=== PATIENT | male | born 1940 | race Caucasian/White ===

== ENCOUNTER 2016-05-10 05:13 | Day surgery (SDC) | payer MEDICARE, OTHER ==
[2016-05-09 14:40] LABS: BASOPHILS 0.3 % (0.0-2.0); EOSINOPHILS 1.6 % (0-7); HEMATOCRIT 43.1 % (42.0-54.0); HEMOGLOBIN 14.1 g/dL (13.5-17.5); IMMATURE GRANULOCYTES 0.3 % (0-5); LYMPHOCYTES 10.3 % (15-50); MCH 31.3 pg (26.0-34.0); MCHC 32.7 g/dL (31.0-37.0); MCV 95.8 fL (80.0-100.0); MEAN PLATELET VOLUME 10.7 fL (7.4-10.4); MONOCYTES 9.7 % (2-11); NEUTROPHILS 77.8 % (40-80); PLATELET COUNT 193 10x3/uL (130-400); RDW 13.8 % (11.5-14.5); WBC 9.2 10x3/uL (4.8-10.8)
[2016-05-09 14:49] LABS: INR 0.93 (0.85-1.17); PROTIME 12.3 SECONDS (11.6-15.0)
[2016-05-09 14:55] LABS: APPEARANCE CLEAR (CLEAR); BILIRUBIN NEGATIVE (NEGATIVE); COLOR YELLOW (YELLOW); GLUCOSE 100 mg/dL (NEGATIVE); KETONE NEGATIVE (NEGATIVE); LEUKOCYTE ESTERASE TRACE (NEGATIVE); NITRITE NEGATIVE (NEGATIVE); PROTEIN NEGATIVE (NEGATIVE); SPECIFIC GRAVITY 1.005 (1.005-1.020); UROBILINOGEN NORMAL (NORMAL)
[2016-05-09 14:57] LABS: BACTERIA NONE SEEN /hpf (NONE SEEN); EPITHELIAL CELLS NSEEN /hpf (0-5); RED CELLS - URINE 0-5 /hpf (0-5); WHITE CELLS - URINE 0-5 /hpf (0-5)
[2016-05-09 15:05] LABS: CALC OSMOLALITY 294 mosm/kg (275-300); CALCIUM 8.7 mg/dL (8.5-10.1); CARBON DIOXIDE 30.6 mmol/L (21.0-32.0); CHLORIDE - SERUM 105 mmol/L (98-107); CREATININE - SERUM 0.9 mg/dL (0.6-1.3); GLUCOSE 164 mg/dL (74-106); POTASSIUM - SERUM 4.9 mmol/L (3.5-5.1); SODIUM 144 mmol/L (136-145); UREA NITROGEN 25 mg/dL (7-18); eGFR NON AFRICAN AMERICAN 87 mL/min (90-120)
[~2016-05-10] VITALS: Ht 180.3 cm; Wt 94.5 kg
[~2016-05-10 05:13] MED LIST: ALBUTEROL1.25 MG/3 INH; CARDURA4 MG PO; CORDARONE200 MG PO; COZAAR50 MG PO; DALIRESP500 MCG PO; DEXILANT30 MG PO; ECOTRIN325 MG PO; LASIX20 MG PO; LEVAQUIN750 MG PO; MUCINEX600 MG PO; MYRBETRIQ50 MG PO; NEXIUM20 MG PO; NITROMIST8.5 GM SL; NORVASC5 MG PO; PLAVIX75 MG PO; PREDNISONE5 MG PO; ROBAXIN-750750 MG PO; SENOKOT-S TABLE1 TAB PO; SINGULAIR10 MG PO; SPIRIVA18 MCG INH; STERAPRED 5MG 65 M1 PO; STERAPRED DS 1010 MG; SYMBICORT 80-10.2 GM INH; TOPROL XL100 MG PO; TUMS500 MG PO; VITAMIN D31000 UNIT PO; VYTORIN 10-20 M1 TAB PO; ZETIA10 MG PO
[2016-05-10 06:12] VITALS: BP 187/95; BMI 29.0
--- NOTE | 2016-05-10 09:32 | NUR ---
NO NUMBNESS OR TINGLING TO LOWER EXTREMETIES REPORTED EQUAL STRENGTHS BILATERALLY
--- NOTE | 2016-05-10 10:03 | NUR ---
2693 AT BEDSIDE. EXPLAINED TO REMAIN ON BEDREST STRAIGHT. STATES DISCOMFORT IS IN RIGHT HIP ONLY HOB AT 15 DEGREES.
--- NOTE | 2016-05-10 19:20 | NUR ---
1920 REPORT TO Marcela PACHECO, TO 5745
--- NOTE | 2016-05-10 19:35 | NUR ---
RECIEVED TO FROM OUTPATIENT TO ROOM 4 VIA WHEELCHAIR ACCOMPAINED PER STAFF FOR OBSERVATION. AWAKE,ALERT, NO COMPLAINTS VOICED. O2 @ 2L PER NC ON. NO DISTRESS NOTED. INCISION TO LUMBAR AREA WITHOUT DRAINAGE NOTED. ALEJANDRE. NO DEFICIETS NOTED. CL IN REACH.
[2016-05-10 23:03] VITALS: BP 153/66; Ht 180.3 cm; Wt 94.5 kg
--- NOTE | 2016-05-11 04:59 | NUR ---
LYING QUIETLY. NO COMPLIANTS VOICED. CL IN REACH.
--- NOTE | 2016-05-11 07:02 | OP ---
PATIENT NAME: RUDY GONZALEZ MEDICAL RECORD: [id number] :38 LOCATION:[id number] ADMISSION DATE: SURGEON: TAWANNA SMITH MD DATE OF OPERATION: 05/10/2016 PREOPERATIVE DIAGNOSIS: Right L3 radiculopathy. POSTOPERATIVE DIAGNOSIS: Right L3 radiculopathy PROCEDURES PERFORMED: 1. Right L3 laminotomy, medial facetectomy, L3-L4 discectomy and nerve root decompression. 2. Use of intraoperative microscope and microdissection techniques. SPECIMENS: None. COMPLICATIONS: None apparent. FINDINGS: More laterally located foraminal disc protrusion. HISTORY OF PRESENT ILLNESS: Mr. Rudy Gonzalez is a pleasant 75-year-old male, who presented as an outpatient with intractable right L3 radicular symptoms. Imaging was consistent with a more laterally positioned nerve root compression at L3 due to an L3-L4 bulging disc. Extensive discussion with the patient in clinic regarding the risks, benefits, and options for continued conservative therapy versus operative intervention in the form of minimally invasive right L3-L4 discectomy. He ultimately agreed to proceed forth with surgery. The risks and benefits of discussed with him in detail prior to surgery and he agreed. PROCEDURE IN DETAIL: Mr. Gonzalez was identified by anesthesia team and transferred to operative theater. General endotracheal anesthesia commenced and all appropriate lines and tubes were placed. He was gently transferred over in the prone position with his arms in the superman fashion on chest bolsters with his pressure points padded and the eyes accounted for by the anesthesia team. Lumbar region was prepped and draped in the usual sterile fashion. A timeout was performed and agreed to by those present. The patient did receive IV antibiotics preoperatively. A 22-gauge spinal needle was used to localize the L3-L4 level and skin incision was infiltrated with local anesthetic and a 10 blade was used to make an incision in the skin down to the underlying fascia, which was then further transected sharply. Blunt dissection occurred of the lamina facet junction and the metrics tube system starting with the dilators was introduced and the operative channel was developed. This was confirmed under lateral x-ray to be in appropriate position. The overlying muscle and soft tissue was removed with a Bovie electrocautery and pituitary rongeur exposing the underlying L3-L4 laminar facet junction. Using a combination of a high-speed matchstick drill, pituitary rongeurs and Kerrison rongeurs, the laminotomy and medial facetectomy was performed. The underlying ligamentum flavum was identified and the plane between it and the dura was dissected with a ball probe dissector. The Kerrison rongeurs were used to perform the removal of the ligament exposing the underlying thecal sac. Judicious bipolar electrocautery was used to coagulate epidural vessels and the L3-L4 disc was identified. A cruciate incision was made in the disc space and pituitary rongeurs and dissectors were used to complete the discectomy. The dissectors were used to interrogate and confirm nerve root decompression both with the OPERATIVE REPORT [id number] RUDY GONZALEZ exiting L3 nerve root and the transiting L4 nerve root. Judicious bipolar electrocautery and Surgiflo hemostatic matrix were used to dress the small amount of epidural hemorrhage. Further inspection revealed no significant hemorrhages. Copious irrigation was used and the tube was removed. Small amount of hemorrhage in the muscle was then coagulated under the microscope with bipolar electrocautery and several more rounds of irrigation were used down the operative tract through the muscle. A 2-0 Vicryl was used in inverted interrupted fashion to reapproximate the fascial layer. Skin was closed with a running 4-0 subcuticular Monocryl. The fascia was closed in watertight fashion. Please note that there was a durotomy noted in the thecal sac; however, the underlying arachnoid remained intact and there was no loss of cerebral spinal fluid visualized at any point in the procedure. The incision was cleaned and dressed and cleaned with a wet and dry dressing. Dermabond skin glue was then placed. Sponge and needle counts were correct times 2 at the end of the case. He tolerated the procedure well. There were no apparent complications. The patient was returned to anesthesia team for reversal and extubation. I spoke to the patient's immediately postoperatively and updated her regarding the course of the procedure. TRANSINT:[id number] Voice Confirmation ID: [id number] DOCUMENT ID: [id number] TAWANNA SMITH MD at 0702 CC: [id number] DICTATION DATE: 05/10/16913 PLUSH BRUSHER: 05/10/16951 [facility] [address] [place] [address]
--- NOTE | 2016-05-11 07:02 | HP ---
PATIENT: JUNIOR MCKEON MEDICAL RECORD: [id number] ACCOUNT: [id number] LOCATION:[id number] : 38 ADMISSION DATE: 05/10/16 HISTORY AND PHYSICAL EXAMINATION CHIEF COMPLAINT: Back pain. HISTORY OF PRESENT ILLNESS: This is a pleasant elderly gentleman who presented to our office in February with complaints of back pain. He had been to a local physical therapist, he stretched him, he felt a pop in his back and he has had pain radiating down into his right leg since that time. The pain in his right leg has worsened in the past week. He is having difficulty ambulating. He has been on Plavix due to stents. He has had it on hold since May 06. PAST MEDICAL HISTORY: Significant for the aforementioned stent. He has also seen Dr. Loera for BMP and has chronic back pain along with congestive heart failure, orthostatic hypotension, hypogonadism, hypercholesterolemia, abnormal testosterone, UTI, constipation, kidney stones and a history of pneumonia. PAST SURGICAL HISTORY: Significant for the aforementioned stents. CURRENT MEDICATIONS: Include his Plavix, amlodipine 5 mg daily, aspirin 325 daily, Dexilant 30 mg delayed release, losartan 50 mg, nitroglycerin p.r.n., hydrocodone 7.5/325 q.6 hours p.r.n., prednisone 5 mg daily, ranitidine 150 daily. He is also on Spiriva handheld inhaler and Symbicort, Vytorin and Flomax. SOCIAL HISTORY: He is . He has a significant other. FAMILY DOCTOR: Dr. Betancourt, Dr. Jules and Dr. Loera. ALLERGIES: None. REVIEW OF SYSTEMS: He denies any recent chest pain, shortness of breath or weight changes. He has had chronic back pain. PHYSICAL EXAMINATION: GENERAL: This is an alert, oriented male in no acute distress. HEENT: Normocephalic. Pupils are equal, reactive to light. CHEST: Clear to auscultation. HEART: S1 and S2. ABDOMEN: Soft. Bowel sounds present. EXTREMITIES: He limps on the right leg. He has a positive straight leg raise. IMPRESSION: A right L3-L4 herniated nucleus pulposus PLAN: A right L3-L4 matrix laminectomy discectomy. He has been cleared surgically by Dr. Jules and also his Plavix since . The risk and benefits of surgery have been explained to him in detail. Risks include bleeding, failure to relieve symptoms, problems with anesthesia and . Time was allowed for questions, questions were answered. The patient wishes to proceed with surgery. TRANSINT:[id number] Voice Confirmation ID: [id number] DOCUMENT ID: [id number] HISTORY AND PHYSICAL [id number] JUNIOR MCKEON Dictated By: ELOISE BOB I have interviewed/examined the above patient and agree with these documented findings. TAWANNA SMITH MD at 0702 at 0826 CC: [id number] DICTATION DATE: 05/09/16 1400 PEDIATRIC ONCOLOGY NURSE: 05/09/[address] [facility] [address] [place] [address]
--- NOTE | 2016-05-11 07:07 | NUR ---
PT AOX4 RESP EVEN AND NONLABORED PT DENIES NEEDS AT THIS TIME IV LEFT HAND PATENT AND INTACT BED AT LOWEST SETTING WILL CONTINUE TO MONITOR CALL LIGHT WITHIN REACH
[2016-05-11 08:03] VITALS: BP 142/74
[2016-05-11 12:14] VITALS: BP 142/62
== END 2016-05-11 17:48 | disposition home or self-care (01) ==
LOC: D.OPS 05:13 → D.MS 05:13 → D.OPS 07:30 → D.PAN 07:30 → D.MS 19:22 → D.OPS 05-11 17:48
PROVIDERS: Neurological Surgery
DX: M54.16 Radiculopathy, lumbar region (principal); G89.29 Other chronic pain; I11.0 Hypertensive heart disease with heart failure; I50.9 Heart failure, unspecified; E29.1 Testicular hypofunction; E78.00 Pure hypercholesterolemia, unspecified; K59.00 Constipation, unspecified; Z87.442 Personal history of urinary calculi; Z95.5 Presence of coronary angioplasty implant and graft; Z79.02 Long term (current) use of antithrombotics/antiplatelets; Z79.82 Long term (current) use of aspirin; Z79.891 Long term (current) use of opiate analgesic; Z79.52 Long term (current) use of systemic steroids; Z79.899 Other long term (current) drug therapy

== ENCOUNTER → 2016-07-12 10:17 | Outpatient (CLI) | payer MEDICARE, OTHER ==
[2016-05-10 23:03] VITALS: BMI 29.0
--- NOTE | 2016-07-12 12:30 | NUR ---
Nutrition education for DMT2: Pt and present for education. Pt reports he used to eat a whole bag of cookies in one sitting. Pt admits to eating huge portions of food at meals. Pt sleeps in and ususally only eats 2 meals a day. Pt drinks a lot of coffee and water during the day. Pt drinks only a small glass of juice in the morning to take medication. Pt is unable to exercise due to back trouble and COPD. 76 year old male Dx: DMT2 Ht: 5'10" Wt: 202# IBW: 166#+/-10% BMI: 29.0 Meds: Metformin 2x/day, Glipizide 1x/day Reviewed CHO foods and the affect CHO have on glucose. Discussed portion sizes of common CHO foods. Stressed the importance of consistent timing of meals to keep glucose under control. Discussed the action of medications and stressed the importance of never skipping meals due to Glipizide may cause low blood sugar if meals are skipped. Reviewed sample menus. Advised pt to keep all sugary foods out of the house to prevent tempation to eat. RDN answered all questions. Pt and with good understanding of information provided. RDN feels pt will attempt to be compliant with dietary recommendations; however, RDN feels pt is going to have a hard time with glucose control. Provided pt with printed diet information and RDN name and phone number. RDN will be available if needed. Thank you for the consult.
== END ==
LOC: D.FANS 10:17
DX: E11.9 Type 2 diabetes mellitus without complications (principal)

== ENCOUNTER → 2016-08-21 19:26 | Outpatient (CLI) | payer MEDICARE, OTHER ==
[2016-05-10 23:03] VITALS: BMI 29.0
== END | disposition home or self-care (01) ==
LOC: D.SLEEP 08-03 20:00
DX: G47.36 Sleep related hypoventilation in conditions classified elsewhere (principal)

== ENCOUNTER → 2017-03-08 10:51 | Outpatient (CLI) | payer MEDICARE, OTHER ==
[2016-05-10 23:03] VITALS: BMI 29.0
== END | disposition home or self-care (01) ==
LOC: D.MRI 10:51
DX: R41.3 Other amnesia (principal)

== ENCOUNTER → 2017-04-06 08:01 | Outpatient (CLI) | payer MEDICARE, OTHER ==
[~2017-04-06] VITALS: Ht 180.3 cm; Wt 100.0 kg
--- NOTE | ~2017-04-06 | HEMODYNAMI ---
PATIENT:JUNIOR MCKEON MEDICAL RECORD: [id number] : 36 LOCATION:[facility] ADMISSION DATE: 04/06/17 Generatedon:04/06/201713:06 Patient name: JUNIOR MCKEON Patient #: [id number] SSN: [id number] : 1940 Date of study: 04/06/2017 Page: Of Hemodynamic Procedure Report Patient Data Patient Demographics Procedure consent was obtained First Name: JUNIOR Gender: Male Last Name: MIKE : 1940 Middle Initial: D Age: 76 year(s) Patient #: [id number] Race: SSN: [id number] Additional ID: [id number] Contact details Address: [address] [place] [address] [place] State: [place] City: [place] Zip code: [address] Past Medical History History of disease Date Diagnosis Comments CAD Peripheral vascular disease Allergies Allergen Reaction Date Comments Reported Other allergy 04/06/2017 hydrocodone Admission Admission Data Admission Date: 04/06/2017 Admission Time: 8:01 Arrival Date: 04/06/2017 Arrival Time: 10:30 Admit Source: Other Insurance Payor: Medicare Lab Results Lab Result Date: 04/06/2017 Lab Result Time: 0:00 Biochemistry Name Units Result Min Max BUN mg/dl 23 --(----)-* 7 18 Creatinine mg/dl 1.2 --(---*)-- 0.6 1.3 CBC Name Units Result Min Max Hemoglobin g/dl 13.2 -*(----)-- 13.5 17.5 Procedure Procedure Types Cath Procedure Diagnostic Procedure [facility] w/Coronaries FFR/IVUS Intra-Coronary IVUS Initial PCI Procedure Coronary Stent Coronary Stent Initial Miscellaneous Procedures Moderate Sedation up to 15 minutes Procedure Description Procedure Date Procedure Date: 04/06/2017 Procedure Start Time: 12:47 Procedure End Time: 13:03 Procedure Staff Name Function Jason Jules MD Performing Physician Jackelin Altamirano RT Monitor Diana Marino RT Scrub Jed Muniz RN Nurse Procedure Data Cath Procedure Fluoroscopy Diagnostic fluoroscopy Total fluoroscopy Time: 2.9 time: 2.9 min min Diagnostic fluoroscopy Total fluoroscopy dose: 799 dose: 799 mGy mGy Contrast Material Contrast Material Type Amount (ml) Isovue 300 90 Entry Location Entry Primary Successful Side Size Upsize Upsize Entry Closure Succes sful Closure Location (Fr) 1 (Fr) 2 (Fr) Remarks Device Remarks Femoral Right 5 Fr 6 Fr Exoseal artery Short Estimated blood loss: 5 ml Diagnostic catheters Device Type Used For End Catheter Placement MULTIPACK Pigtail 5 Fr LV Angiography catheter MULTIPACK JL 4.0 5Fr Left Coronary catheter Angiography MULTIPACK 3DRC 5Fr Right Coronary catheter Angiography Procedure Complications No complications Procedure Medications Medication Administration Route Dosage 0.9% NaCl I.V. 100 ml/hr Oxygen NC 2 l/min Heparin Flush Bag added to field 2 bags (1000units/500ml NS) Lidocaine 2% added to field 20 Versed I.V. 2 mg Fentanyl I.V. 100 mcg Versed I.V. 1 mg Heparin Bolus I.V. 4000 units Hemodynamics Rest HGB: 13.2 (g/dl) Heart Rate: 76 (bpm) Pressure Samples Time Site Value (mmHg) Purpose Heart Use Rate(bpm) 12:50 LV 157/31,37 Snapshot 81 Snapshots Pre Cath Intra NCS Post Cath Vital Signs Time Heart Resp SPO2 etCO2 NIBP (mmHg) Rhythm Pain Sedation Rate (ipm) (%) (mmHg) Status Level (bpm) 12:16:29 86 14 96 40 176/100(141) NSR 0 (11) 10(A) , No pain 12:21:14 85 14 97 37.7 181/97(137) NSR 0 (11) 10(A) , No pain 12:25:58 77 14 94 31.7 139/73(119) NSR 0 (11) 10(A) , No pain 12:30:39 83 15 92 0 144/80(109) NSR 0 (11) 10(A) , No pain 12:36:01 88 15 95 19.6 160/97(122) NSR 0 (11) 10(A) , No pain 12:40:45 84 15 94 46.1 139/82(111) NSR 0 (11) 10(A) , No pain 12:45:28 86 19 91 42.3 145/77(99) NSR 0 (11) 10(A) , No pain 12:50:11 88 13 94 24.2 155/85(116) NSR 0 (11) 10(A) , No pain 12:55:10 89 12 93 42.3 Measuring NSR 0 (11) 10(A) , No pain 12:55:36 93 13 93 43 174/96(147) NSR 0 (11) 10(A) , No pain 13:00:19 89 16 95 43.8 161/93(121) NSR 0 (11) 10(A) , No pain Medications Time Medication Route Dose Verified Delivered Reason Notes Effectiveness by by 12:16:15 0.9% NaCl I.V. 100 Jed Jed Per physician ml/hr Flavio Muniz RN RN 12:16:28 Oxygen NC 2 Jed Jed Per physician l/min Flavio Muniz RN, RN 12:16:42 Heparin Flush added 2 Jed Jed used for Bag to bags Flavio Muniz procedure (1000units/500ml field NARAYAN RN NS) 12:17:00 Lidocaine 2% added 20ml Jed Jed for local to vial Flavio Muniz anesthetic field NARAYAN RN 12:45:14 Versed I.V. 2 mg Jed Jed for sedation Flavio Muniz RN, RN 12:45:28 Fentanyl I.V. 100 Jed Jed for sedation mcg Flavio Muniz RN, RN 12:50:00 Versed I.V. 1 mg Jed Jed for sedation Flavio Muniz RN, RN 12:58:31 Heparin Bolus I.V. 4000 Jed Jed for units Flavio Muniz anticoagulation RN block trimmer Log Time Note 12:00:03 Diana PRATT(R) sent for patient. Start room use. 12:04:10 Time tracking: Regular hours 12:04:15 Plan of Care:Hemodynamics will remain stable., Cardiac rhythm will remain stable., Comfort level will be maintained., Respiratory function will remain adequate., Patient/ family verbilizes understanding of procedure., Procedure tolerated without complication., Recovers from procedure without complications.. 12:04:20 Patient received from Pre/Post Procedure Room to CCL 2 Alert and oriented. Tansferred to table in Supine position. 12:04:22 Warm blankets applied, and erika hugger turned on for patient comfort. 12:04:23 Correct patient and procedure confirmed by team. 12:04:24 Signed procedure consent form obtained from patient. 12:04:25 ECG and BP/O2 sat monitors applied to patient. 12:15:35 Baseline sample Acquired. 12:15:35 Vital chart was started 12:15:41 Rhythm: sinus rhythm 12:15:43 Full Disclosure recording started 12:16:15 0.9% NaCl 100 ml/hr I.V. was administered by Jed Muniz RN; Per physician; 12:16:28 Oxygen 2 l/min NC was administered by Jed Muniz RN; Per physician; 12:16:42 Heparin Flush Bag (1000units/500ml NS) 2 bags added to field was administered by Jed Muniz RN; used for procedure; 12:17:00 Lidocaine 2% 20ml vial added to field was administered by Jed Muniz RN; for local anesthetic; 12:17:34 H&P Date Dictated: 04/05/2017 Within 30 days and on chart., H&P Addendum completed by physician on day of procedure. (MUST COMPLETE FOR ALL OUTPATIENTS). 12:17:36 Pre-procedure instructions explained to patient. 12:17:36 Pre-op teaching completed and patient verbalized understanding. 12:17:38 Family unavailable. 12:17:40 Patient NPO since Midnight. 12:18:38 Patient allergic to Other allergyhydrocodone 12:18:46 Is the patient allergic to Iodine/contrast media? No. 12:18:47 Was the patient premedicated? No 12:18:52 Is patient on blood thinner?Yes 12:18:55 ACC The patient was administered the following blood thiners within the last 24 hours: ACCPlavix 12:20:22 Patient diabetic? No. 12:20:26 Previous problem with sedation/anesthesia? No ? 12:20:37 Snore? Yes 12:20:38 Sleep apnea? Yes 12:20:41 Deviated septum? No 12:20:42 Opens mouth fully? Yes 12:20:43 Sticks out tongue? Yes 12:20:49 Airway obstruction? Yes copd 12:20:56 Dentures? No ? 12:21:03 Pre procedure: right dorsailis pedis pulse 2+ Normal; easily identifiable; not easily obliterated 12:21:06 Pre procedure: left dorsailis pedis pulse 2+ Normal; easily identifiable; not easily obliterated 12:21:08 Patient pain scale 0/10 ?. 12:21:22 IV patent on arrival in right forearm with 0.9% NaCl at [facility]. 12:25:49 Lab Result : BUN 23 mg/dl 12::49 Lab Result : Creatinine 1.2 mg/dl 12::49 Lab Result : Hemoglobin 13.2 g/dl 12:25:53 Lab results completed and on chart. 12:25:57 Right groin area was prepped with chlora-prep and draped in sterile fashion 12::59 Alarms reviewed by R. N. 12::59 Sharps counted by scrub and verified by R.N. 12:34:35 Admit Source: Other 12:34:42 Arrival Date: 04/06/2017 10:30:00 AM 12:34:49 Insurance Payor : Medicare 12:35:13 Zero performed for pressure channel P1 12:41:55 Physician arrived 12:41:55 --------ALL STOP TIME OUT------ 12:41:57 Final Timeout: patient, procedure, and site verified with staff and physician. All members of the team are in agreement. 12:41:59 Right groin site verified by team. 12:42:02 Physical assessment completed. ASA score P 2 - A patient with mild systemic disease as per Jason Jules MD. 12:42:06 Sedation plan: IV Moderate Sedation Medication:Versed, Fentanyl 12:43:36 Use device set Femoral Dx 12:43:37 ACIST Syringe (40059) opened to sterile field. 12:43:37 Bag Decanter (2002S) opened to sterile field. 12:43:38 Medline Cath Pack ([id number]) opened to sterile field. 12:43:38 SHEATH 5FR [place] (FLF579) opened to sterile field. 12:43:39 DIAGNOSTIC WIRE .035 260cm J wire (523509) opened to sterile field. 12:43:40 ACIST Hand Control (67089) opened to sterile field. 12:43:41 ACIST Manifold (92163) opened to sterile field. 12:43:41 DIAGNOSTIC Multipack 5Fr catheter set (CI3227) opened to sterile field. 12:43:42 Tegaderm 4 x 4 (1626W) opened to sterile field. 12:45:14 Versed 2 mg I.V. was administered by Jed Muniz RN; for sedation; 12:45:28 Fentanyl 100 mcg I.V. was administered by Jed Muniz RN; for sedation; 12:47:17 Procedure started. 12:47:20 Local anesthetic to right femoral artery with Lidocaine 2% by Jason Jules MD.INITIAL ACCESS ONLY 12:47:28 A 5 Fr sheath was inserted into the Right Femoral artery 12:49:35 AMPLATZ Super stiff 180cm wire ([id number]) opened to sterile field. 12:50:00 Versed 1 mg I.V. was administered by Jed Muniz RN; for sedation; 12:50:09 amplatz wire used to provide support for 5 frech sheath 12:50:29 A MULTIPACK Pigtail 5 Fr catheter was advanced over the wire and used for LV Angiography. 12:51:02 LV hemodynamics recorded. 12:51:04 LV gram done using GRIGGS 12:51:06 Injector settings: Ml/sec: 5, Volume: 15, 12:51:12 EF : 40 % 12:51:16 Catheter removed. 12:51:22 A MULTIPACK JL 4.0 5Fr catheter was advanced over the wire and used for Left Coronary Angiography. 12:51:36 LCA angiography performed. 12:51:39 Injector settings: Ml/sec: 3, Volume: 6, 12:52:51 Catheter removed. 12:52:58 A MULTIPACK 3DRC 5Fr catheter was advanced over the wire and used for Right Coronary Angiography. 12:53:12 RCA angiography performed. 12:53:15 Injector settings: Ml/sec: 3, Volume: 6, 12:53:49 Catheter removed. 12:54:01 INFLATOR Merit BasixCompak (EM9744) opened to sterile field. 12:54:02 SHEATH 6FR [place] (FWF146) opened to sterile field. 12:54:56 [place] IVUS Catheter (60419O) opened to sterile field. 12:55:02 GUIDE 6FR XB 4.0 SH catheter ([id number]) opened to sterile field. 12:55:14 CHOICE PT Extra Support 182cm wire ([id number]) opened to sterile field. 12:56:17 Sheath upsized to a 6 Fr Short. 12:56:25 6 Fr xb 4 sh guide catheter was inserted over the wire 12:56:32 choice pt wire advanced. 12:56:34 Wire advanced across lesion. 12:56:40 IVUS catheter advanced over wire. 12:58:31 Heparin Bolus 4000 units I.V. was administered by Jed Muniz RN; for anticoagulation; 12:59:35 IVUS pass to Circ lesion performed. 13:00:06 Inflation Number: 1 A INTEGRITY RX 3.5 x 22 stent ([id number]) was prepped and advanced across the Mid CX. The stent was deployed at 17 IMAN for 0:10 (min:sec). 13:00:35 Stent catheter was removed intact over wire. 13:00:35 Wire removed. 13:00:36 Guide catheter removed. 13:00:45 EXOSEAL 6Fr (EX600) opened to sterile field. 13:00:56 Sheath removed intact; hemostasis achieved with Exoseal to the Right Femoral artery. 13:00:58 Procedure ended.(Physican Out) 13:02:00 Fluoroscopy time 02.90 minutes. 13:02:05 Fluoroscopy dose: 799 mGy 13:02:05 Flurop Dose total: 799 13:02:15 Contrast amount:Isovue 300 90ml. 13:02:17 Sharps counted by scrub and verified by R.N. 13:02:18 Insertion/operative site no bleeding no hematoma. 13:02:21 Post-op/insertion site Right Femoral artery dressed using a 4 x 4 and Tegaderm. 13:02:24 Post right femoral artery:stable 13:02:27 Post procedure rhythm: unchanged. 13:02:30 Estimated blood loss: 5 ml 13:02:34 Post procedure instruction explained to patient.Patient verbalizes understanding. 13:02:40 Patient needs reinforcement of post procedure teaching. 13:03:02 Procedure type changed to Cath procedure, Diagnostic procedure, [facility], [facility] w/Coronaries, FFR/IVUS, Intra-Coronary IVUS Initial, PCI procedure, Coronary Stent, Coronary Stent Initial, Miscellaneous Procedures, Moderate Sedation up to 15 minutes 13:03:04 Procedure and supply charges have been captured, reviewed, submitted and are correct. 13:03:08 Procedure Complication : No complications 13:03:11 Vital chart was stopped 13:03:12 See physician's report for complete and final results. 13:03:41 Report given to Pre/Post Procedure Room. 13:03:46 Patient transfered to Pre/Post Procedure Room with Stretcher. 13:03:54 Procedure ended. 13:03:54 Full Disclosure recording stopped 13:04:32 ACC-PCI Only Patient was given prescriptions, or instructed by Jason Jules MD to start/continue the following medications upon discharge: Plavix 13:04:34 End room use (Document Last) Intervention Summary Intervention Notes Time ActionType Lesion and Equipment Action# Pressure Duration Attributes Used 13:00:06 Place stent Mid CX INTEGRITY RX 1 17 00:10 3.5 x 22 stent ([id number]) Device Usage Item Name Manufacture Quantity Catalog Number Hospital Part Current Mini mal Lot# / Charge Number Stock Stock Serial# Code ACIST Acist 1 38514 567352 168608 444132 20 Syringe Medical (06245) Systems Inc Bag Decanter Microtek 1 2002S 599880 67505 867975 5 (2001S) Medical Inc. Medline Cath Cardinal 1 [id number] 645249 90262 813562 5 Pack Health ([id number]) SHEATH 5FR Terumo 1 OWY179 984955 332282 407961 40 [place] (XSZ845) DIAGNOSTIC [facility] 1 104892 855704 870503 830106 30 WIRE .035 260cm J wire (118424) ACIST Hand Acist 1 46570 052076 192995 158628 5 Control Medical (48084) Systems Inc ACIST Acist 1 14577 774476 355242 421371 5 Manifold Medical (18750) Systems Inc DIAGNOSTIC Cardinal 1 HX4645 054882 74826 732325 30 Multipack Health 5Fr catheter set (KK1616) Tegaderm 4 x 3M 1 1626W 665057 303415 688940 5 4 (1626W) AMPLATZ [place] 1 [id number] 382936 014825 5 Super stiff Scientific 180cm wire ([id number]) MULTIPACK Cardinal 1 150758 5 Pigtail 5 Fr Health catheter MULTIPACK JL Cardinal 1 446238 5 4.0 5Fr Health catheter MULTIPACK Cardinal 1 462654 5 3DRC 5Fr Health catheter INFLATOR Merit 1 EJ1007 190900 187540 771945 15 [facility] BasixCompak (EX1642) SHEATH 6FR Terumo 1 FZC420 573517 786937 463552 40 [place] (OVG354) [place] 1 51382S 302376 140141 434361 8 [place] IVUS Catheter (69267E) GUIDE 6FR XB Cardinal 1 [id number] 353540 986481 086327 2 4.0 SH Health catheter (66318433) CHOICE PT [place] 1 [id number] 926656 320347 900964 5 Extra Scientific Support 182cm wire ([id number]) INTEGRITY RX Medtronic 1 [id number] 205579 327430 271565 5 [id number] 3.5 x 22 stent ([id number]) EXOSEAL 6Fr Cardinal 1 EX600 735576 588468 602927 10 (EX600) Health Signature Audit [place] Stage Time Signature Unsigned Intra-Procedure 04/06/2017 Jackelin Altamirano 1:06:54 PM RT(R) Signatures Monitor : Jackelin Altamirano RT Signature : Date : Time : [place] [id number] [place] [address]
--- NOTE | ~2017-04-06 | OP ---
PATIENT NAME: JUNIOR MCKEON MEDICAL RECORD: [id number] :38 LOCATION:D.CAT ADMISSION DATE: SURGEON: WALI ABRAMS MD DATE OF OPERATION: 04/06/2017 PROCEDURES: 1. PTCA stent left circumflex. 2. Intravascular ultrasound of left circumflex. 3. Left heart catheterization. 4. Selective coronary angiography. 5. Left ventriculogram. INDICATION: Angina and coronary artery disease. PROCEDURE IN DETAIL: After informed consent was obtained and after a detailed explanation of risks, benefits as well as alternative therapies, the patient elected to proceed with angiogram and angioplasty. The right femoral area is prepped and draped in normal sterile fashion. The right femoral artery was cannulated via modified Seldinger technique with placement of a 6-[place] sheath. All catheters exchanged through this sheath. FINDINGS: Left ventriculogram was performed in standard 30-degree GRIGGS view, reveals global hypokinesis, ejection fraction 40%. SELECTIVE CORONARY ANGIOGRAPHY: 1. Left main showed no significant angiographic disease. 2. Left anterior descending has moderate irregularities, but no flow-limiting stenosis. 3. The left circumflex has greater than 70% stenosis confirmed by intravascular ultrasound in the mid vessel. 4. The right coronary artery has previously placed stents, these are widely patent with no significant restenosis. No disease elsewise throughout the RCA or its branches. PTCA STENT OF THE LEFT CIRCUMFLEX: The stent used is a 3.5 x 22 mm Integrity. Result was 0% residual stenosis. No angiographic evidence of dissection or thrombus with methodist of KIERA-3 flow. IMPRESSION: Successful percutaneous transluminal coronary angioplasty stent of the left circumflex going from greater than 70% initial stenosis confirmed by intravascular ultrasound to 0% residual stenosis. TRANSINT:[id number] Voice Confirmation ID: [id number] DOCUMENT ID: [id number] WALI ABRAMS MD CC: [id number] DICTATION DATE: 04/06/17 1306 ASBESTOS COVERER: 04/06/17 1421 [place] [id number] [place] [id number]
[~2017-04-06 08:01] MED LIST changes: +BAYER CHEWABLE81 MG PO; +GLUCOPHAGE500 MG PO; +LIPITOR20 MG PO
[2017-04-06 08:58] VITALS: BP 154/66; Ht 180.3 cm; Wt 100.0 kg
[2017-04-06 09:13] LABS: BASOPHILS 0.2 % (0-2); EOSINOPHILS 1.6 % (0-7); HEMATOCRIT 40.9 % (42.0-54.0); HEMOGLOBIN 13.2 g/dL (13.5-17.5); IMMATURE GRANULOCYTES 0.2 % (0-5); LYMPHOCYTES 14.3 % (15-50); MCH 30.1 pg (26.0-34.0); MCHC 32.3 g/dL (31.0-37.0); MCV 93.4 fL (80.0-100.0); MONOCYTES 8.9 % (2-11); NEUTROPHILS 74.8 % (40-80); PLATELET COUNT 200 10x3/uL (130-400); RBC 4.38 10x6/uL (4.20-6.10); WBC 11.6 10x3/uL (4.8-10.8)
[2017-04-06 09:15] LABS: ANION GAP 13.6 mmol/L (8-16); CALCIUM 9.2 mg/dL (8.5-10.1); CARBON DIOXIDE 29.4 mmol/L (21.0-32.0); CREATININE - SERUM 1.2 mg/dL (0.6-1.3)
[2017-04-06 09:17] LABS: INR 0.9 (0.85-1.17); PROTIME 11.7 SECONDS (11.6-15.0)
== END | disposition home or self-care (01) ==
LOC: D.CATH 08:01
PROVIDERS: Internal Medicine Interventional Cardiology
DX: I20.9 Angina pectoris, unspecified (principal); I10 Essential (primary) hypertension; E78.5 Hyperlipidemia, unspecified; Z01.812 Encounter for preprocedural laboratory examination

== ENCOUNTER → 2017-05-02 08:21 | Outpatient (CLI) | payer MEDICARE, OTHER ==
[2017-04-06 08:58] VITALS: BMI 30.7
== END | disposition home or self-care (01) ==
LOC: D.CT 08:21
DX: I70.219 Atherosclerosis of native arteries of extremities with intermittent claudication, unspecified extremity (principal); R93.8 Abnormal findings on diagnostic imaging of other specified body structures; I25.10 Atherosclerotic heart disease of native coronary artery without angina pectoris

== ENCOUNTER → 2017-05-07 07:37 | Outpatient (CLI) | payer MEDICARE, OTHER ==
[~2017-05-07] VITALS: Ht 180.3 cm; Wt 100.0 kg
--- NOTE | ~2017-05-07 | HEMODYNAMI ---
PATIENT:JUNIOR MCKEON MEDICAL RECORD: [id number] : 36 LOCATION:[facility] ADMISSION DATE: 05/07/17 Generatedon:05/07/201714:10 Patient name: JUNIOR MCKEON Patient #: [id number] SSN: [id number] : 1940 Date of study: 05/07/2017 Page: Of Hemodynamic Procedure Report Patient Data Patient Demographics Procedure consent was obtained First Name: JUNIOR Gender: Male Last Name: MIKE : 1940 Middle Initial: D Age: 76 year(s) Patient #: [id number] Race: SSN: [id number] Additional ID: [id number] Contact details Address: [address] [place] [address] [place] State: [place] City: [place] Zip code: [address] Past Medical History History of disease Date Diagnosis Comments CAD Peripheral vascular disease Allergies Allergen Reaction Date Comments Reported Other allergy 04/06/2017 hydrocodone Other allergy 05/07/2017 none Admission Admission Data Admission Date: 05/07/2017 Admission Time: 7:37 Height (in.): 66 BSA: 2.09 (m2) Height (cm.): 167.64 BMI: 35.67 (kg/m2) Weight (lbs.): 221 Weight (kg.): 100.24 Procedure Procedure Types Cath Procedure Peripheral Cath Diagnostic Procedure Cath Peripheral Eechj-Loueuuy-Jnw-Off Procedure Description Procedure Date Procedure Date: 05/07/2017 Procedure Start Time: 13:53 Procedure End Time: 14:02 Procedure Staff Name Function Jason Jules MD Performing Physician Diana Marino RT Monitor Fransisco Martin RN Nurse Jackelin Altamirano RT Scrub Procedure Data Cath Procedure Fluoroscopy Diagnostic fluoroscopy Total fluoroscopy Time: 1 time: 1 min min Diagnostic fluoroscopy Total fluoroscopy dose: 324 dose: 324 mGy mGy Contrast Material Contrast Material Type Amount (ml) Isovue 300 114 Entry Location Entry Primary Successful Side Size Upsize Upsize Entry Closure Succes sful Closure Location (Fr) 1 (Fr) 2 (Fr) Remarks Device Remarks Femoral Right 6 Fr Exoseal artery Short Estimated blood loss: 10 ml Diagnostic catheters Device Type Used For End Catheter Placement DIAGNOSTIC UF 5Fr Abdominal catheter ([id number]) aortogram with runoff Procedure Complications No complications Procedure Medications Medication Administration Route Dosage Oxygen NC 2 l/min Lidocaine 2% added to field 20 Heparin Flush Bag added to field 2 bags (1000units/500ml NS) 0.9% NaCl I.V. 100 ml/hr Versed I.V. 1 mg Fentanyl I.V. 50 mcg Versed I.V. 1 mg Fentanyl I.V. 50 mcg Fentanyl I.V. 50 mcg Fentanyl I.V. 50 mcg Hemodynamics Rest BSA: 2.09 (m2) O2 Consumption: Estimated: 241.59 (ml/min) O2 Consumption indexed : Estimated:115.59 (ml/min/m) Heart Rate: 73 (bpm) Snapshots Pre Cath Intra NCS Post Cath Vital Signs Time Heart Resp SPO2 etCO2 NIBP (mmHg) Rhythm Pain Sedation Rate (ipm) (%) (mmHg) Status Level (bpm) 13:15:26 83 17 98 0 173/100(138) NSR 0 (11) 10(A) , No pain 13:19:52 85 16 97 0 182/109(145) NSR 0 (11) 10(A) , No pain 13:24:04 81 15 96 0 155/90(142) NSR 0 (11) 10(A) , No pain 13:28:18 80 16 97 0 136/77(123) NSR 0 (11) 10(A) , No pain 13:32:32 80 15 96 0 135/79(108) NSR 0 (11) 10(A) , No pain 13:36:48 78 16 93 0 132/72(92) NSR 0 (11) 10(A) , No pain 13:40:58 78 16 95 0 126/70(99) NSR 0 (11) 10(A) , No pain 13:45:08 79 17 97 0 126/70(109) NSR 0 (11) 10(A) , No pain 13:49:22 79 16 96 0 128/69(101) NSR 0 (11) 10(A) , No pain 13:53:34 84 15 94 0 134/88(113) NSR 0 (11) 9(A) , No pain 13:57:46 74 19 94 0 150/94(124) NSR 0 (11) 9(A) , No pain 14:01:58 84 17 95 0 149/94(137) NSR 0 (11) 10(A) , No pain 14:04:35 84 16 94 0 173/95(132) NSR 0 (11) 10(A) , No pain Medications Time Medication Route Dose Verified Delivered Reason Notes Effe ctiveness by by 13:23:31 Oxygen NC 2 Jason Buffie used for l/min Jorge A Martin RN procedure 13:23:37 Lidocaine 2% added 20ml Jason Jason for local to vial Jorge A Jules MD anesthetic field 13:23:43 Heparin Flush added 2 Jason Jason used for Bag to bags Jorge A Jules MD procedure (1000units/500ml field NS) 13:23:53 0.9% NaCl I.V. 100 Jason Buffie Per ml/hr Jorge A Martin RN physician 13:51:22 Versed I.V. 1 mg Jason Moody for Jorge A Martin RN sedation 13:51:29 Fentanyl I.V. 50 Jason Buffie for almaz Martin RN sedation 13:54:35 Versed I.V. 1 mg Jason Buffie for Jorge A Martin RN sedation 13:54:38 Fentanyl I.V. 50 Jason Buffie for almaz Martin RN sedation 13:58:14 Fentanyl I.V. 50 Jason Buffie for almaz Martin RN sedation 14:01:16 Fentanyl I.V. 50 Jason Buffie for almaz Martin RN sedation Procedure Log Time Note 13:12:56 Patient Height : 66 inches 13:13:03 Patient Weight : 221 lbs 13:13:43 Diagnostic Cath status Elective 13:13:49 Jackelin Altamirano RT(R) sent for patient. Start room use. 13:13:50 Time tracking: Regular hours 13:13:58 Plan of Care:Hemodynamics will remain stable., Cardiac rhythm will remain stable., Comfort level will be maintained., Respiratory function will remain adequate., Patient/ family verbilizes understanding of procedure., Procedure tolerated without complication., Recovers from procedure without complications.. 13:14:03 Patient received from Pre/Post Procedure Room to CCL 2 Alert and oriented. Tansferred to table in Supine position. 13:14:05 Warm blankets applied, and erika hugger turned on for patient comfort. 13:14:06 Correct patient and procedure confirmed by team. 13:14:07 Signed procedure consent form obtained from patient. 13:14:11 ECG and BP/O2 sat monitors applied to patient. 13:14:12 Vital chart was started 13:14:15 Baseline sample Acquired. 13:14:22 Rhythm: sinus rhythm 13:14:24 Full Disclosure recording started 13:22:55 H&P Date Dictated: 05/02/2017 Within 30 days and on chart.. 13:22:56 Pre-procedure instructions explained to patient. 13:22:58 Family in waiting room. 13:23:00 Patient NPO since Midnight. 13:23:19 Patient allergic to Other allergynone 13:23:25 Is the patient allergic to Iodine/contrast media? No. 13:23:28 Was the patient premedicated? Yes 13:23:29 Is patient on blood thinner?Yes 13:23:31 Oxygen 2 l/min NC was administered by Fransisco Martin RN; used for procedure; 13:23:32 ACC The patient was administered the following blood thiners within the last 24 hours: ACCPlavix 13:23:34 Patient diabetic? Yes. 13:23:36 If diabetic: On Metformin? Yes 13:23:37 Lidocaine 2% 20ml vial added to field was administered by Jason Jules MD; for local anesthetic; 13:23:40 If on Metformin: Last Dose? 05/06/2017 13:23:43 Heparin Flush Bag (1000units/500ml NS) 2 bags added to field was administered by Jason Jules MD; used for procedure; 13:23:44 HCG/Urine : completed and on chart 13:23:48 Snore? Yes 13:23:49 Sleep apnea? Yes 13:23:53 0.9% NaCl 100 ml/hr I.V. was administered by Fransisco Martin RN; Per physician; 13:23:55 Airway obstruction? Yes COPD 13:23:58 Dentures? No ? 13:24:10 IV patent on arrival in left antecubital with 0.9% NaCl at KVO. 13:24:21 Lab results completed and on chart. 13:24:26 Bilateral groins area was prepped with chlora-prep and draped in sterile fashion 13:: Alarms reviewed by R. N. 13:24:28 Sharps counted by scrub and verified by R.N. 13:24:29 Physician paged 13:26:37 Zero performed for pressure channel P1 13:50:45 Physician arrived 13:50:46 --------ALL STOP TIME OUT------ 13:50:47 Final Timeout: patient, procedure, and site verified with staff and physician. All members of the team are in agreement. 13:50:49 Bilateral groins site verified by team. 13:50:52 Physical assessment completed. ASA score P 2 - A patient with mild systemic disease as per Jason Jules MD. 13:50:56 Sedation plan: IV Moderate Sedation Medication:Versed, Fentanyl 13:51:22 Versed 1 mg I.V. was administered by Fransisco Martin RN; for sedation; 13:51:29 Fentanyl 50 mcg I.V. was administered by Fransisco Martin RN; for sedation; 13:52:52 Procedure started. 13:53:05 Local anesthetic to right femoral artery with Lidocaine 2% by Jason Jules MD.INITIAL ACCESS ONLY 13:53:35 A 6 Fr Short sheath was inserted into the Right Femoral artery 13:54:00 Use device set Femoral Dx 13:54:01 ACIST Syringe (17618) opened to sterile field. 13:54:02 Bag Decanter () opened to sterile field. 13:54:03 Medline Cath Pack ([id number]) opened to sterile field. 13:54:05 DIAGNOSTIC WIRE .035 260cm J wire (200300) opened to sterile field. 13:54:06 ACIST Hand Control (46636) opened to sterile field. 13:54:06 ACIST Manifold (01612) opened to sterile field. 13:54:07 DIAGNOSTIC Multipack 5Fr catheter set ([id number]) opened to sterile field. 13:54:07 Tegaderm 4 x 4 (1626W) opened to sterile field. 13:54:15 PERCUTANEOUS ENTRY 19GA needle opened to sterile field. 13:54:35 Versed 1 mg I.V. was administered by Buffie Martin RN; for sedation; 13:54:38 Fentanyl 50 mcg I.V. was administered by Fransisco Martin RN; for sedation; 13:56:31 A DIAGNOSTIC UF 5Fr catheter ([id number]) was advanced over the wire and used for Abdominal aortogram with runoff. 13:57:07 Right leg runoff performed. 13:57:08 Left leg runoff performed. 13:58:14 Fentanyl 50 mcg I.V. was administered by Fransisco Martin RN; for sedation; 13:59:19 EXOSEAL 6Fr (EX600) opened to sterile field. 14:00:00 Sheath removed intact; hemostasis achieved with Exoseal to the Right Femoral artery. 14:00:02 Procedure ended.(Physican Out) 14:00:07 Fluoroscopy time 01.00 minutes. 14:00:10 Fluoroscopy dose: 324 mGy 14:00:10 Flurop Dose total: 324 14:00:14 Contrast amount:Isovue 300 114ml. 14:00:16 Sharps counted by scrub and verified by R.N. 14:00:17 Insertion/operative site no bleeding no hematoma. 14:00:21 Post right femoral artery:stable 14:00:31 Post Procedure Pulses reassessed and unchanged 14:00:38 Post-procedure physical assessment completed. ASA score P 2 - A patient with mild systemic disease as per Jason Jules MD. 14:00:42 Post procedure rhythm: unchanged. 14:01:16 Fentanyl 50 mcg I.V. was administered by Fransisco Martin RN; for sedation; 14:01:27 Estimated blood loss: 10 ml 14:01:28 Post procedure instruction explained to patient.Patient verbalizes understanding. 14:01:46 Procedure and supply charges have been captured, reviewed, submitted and are correct. 14:02:40 Procedure Complication : No complications 14:02:42 Vital chart was stopped 14:02:43 See physician's report for complete and final results. 14:02:44 Report given to Pre/Post Procedure Room. 14:02:47 Patient transfered to Pre/Post Procedure Room with Stretcher. 14:02:49 Procedure ended. 14:02:49 Full Disclosure recording stopped 14:02:57 End room use (Document Last) Device Usage Item Name Manufacture Quantity Catalog Hospital Part Current Minimal Lot# / Number Charge Number Stock Stock Serial# Code [facility] 1 [id number] 115311 [id number] 20 Syringe Medical (52711) Systems Inc Bag Decanter Microtek 1 2001S 502978 32095 066209 5 (2001S) Medical Inc. Medline Cath Cardinal 1 [id number] 899548 27934 512526 5 Pack Health ([id number]) DIAGNOSTIC [facility] 1 098882 635255 067203 020111 30 WIRE .035 260cm J wire (880965) ACIST Hand Acist 1 46120 470104 467005 094286 5 Control Medical (58380) Systems Inc ACIST Acist 1 00657 279648 011814 308891 5 Manifold Medical (84706) Systems Inc DIAGNOSTIC Cardinal 1 [id number] 109472 35480 375264 30 MultipGreenvity Communications 5Fr catheter set (PM2230) Tegaderm 4 x 3M 1 1626W 459524 347183 099935 5 4 (1626W) PERCUTANEOUS Cook Medical 1 Q28361 711424 666334 5 ENTRY 19GA needle DIAGNOSTIC Cardinal 1 [id number] 413101 605963 654495 10 UF 5Fr Health catheter ([id number]) EXOSEAL 6Fr Cardinal 1 EX600 048845 549662 953917 10 (EX600) Health Signature Audit [place] Stage Time Signature Unsigned Intra-Procedure 05/07/2017 Diana Marino 2:10:19 PM RT(R) Signatures Monitor : Diana Marino Signature : RT Date : Time : [address] [place] [address]
--- NOTE | ~2017-05-07 | OP ---
PATIENT NAME: JUNIOR MCKEON MEDICAL RECORD: [id number] :36 LOCATION:[facility] ADMISSION DATE: SURGEON: WLAI ABRAMS MD DATE OF OPERATION: 05/07/2017 PROCEDURES: 1. Aortofemoral runoff. 2. Abdominal aortography. INDICATION: Claudication and peripheral vascular disease. PROCEDURE IN DETAIL: After informed consent was obtained and after detailed explanation of risks, benefits as well as alternative therapies, the patient elected to proceed with angiogram and aortofemoral runoff. The right femoral area was prepped and draped in normal sterile fashion. The right femoral artery was cannulated via modified Seldinger technique with placement of a 6-Bulgarian sheath. All catheters exchanged through this sheath. FINDINGS: Abdominal aortography was performed. The catheter was pulled down for aortofemoral runoff. Abdominal aortography reveals no significant abdominal aortic disease. No dissection or aneurysm formation. No renal artery stenosis. RIGHT LEG: A. Iliac: The common and external iliacs were replaced with an aortobifemoral graft. This is widely patent. B. Femoral system: The common and deep femoral are widely patent. Superficial femoral has multiple areas of calcification; however, no real stenosis. No stenosis greater than 30% to 50%. Definitely no flow-limiting stenosis. C. Popliteal and infrapopliteal vessels: The popliteal is widely patent. Anterior tibial is totally occluded. Posterior tibial and peroneal are severely diffusely diseased. Runoff is only midway down to the foot. Then the vessels are basically occluded. There is only runoff via collaterals. LEFT LEG: A. Iliac: The common and external iliacs were replaced with an aortobifemoral graft. This is widely patent. B. Femoral system: The common and deep femoral are widely patent. Superficial femoral has multiple areas of calcification; however, no real stenosis. No stenosis greater than 30% to 50%. Definitely no flow-limiting stenosis. C. Popliteal and infrapopliteal vessels: The popliteal is widely patent. Anterior tibial is totally occluded. Posterior tibial and peroneal are severely diffusely diseased. Runoff is only midway down to the foot. Then the vessels are basically occluded. There is only runoff via collaterals. OVERALL IMPRESSION: Wide patency of the aortobifemoral graft, no significant SFA disease, severe infrapopliteal disease, this is only amenable to medical management. TRANSINT:[id number] Voice Confirmation ID: [id number] DOCUMENT ID: [id number] OPERATIVE REPORT [id number] JUNIOR MCKEON, WALI VERNON at 1140 CC: [id number] DICTATION DATE: 05/07/17 1404 CORRECTIONAL CORPORAL: 05/07/17 1425 DEP CLI 05/07/17 [place] [id number] [place] [id number]
[2017-05-07 08:43] VITALS: BP 183/82; Ht 180.3 cm; Wt 100.0 kg
[2017-05-07 08:52] LABS: BASOPHILS 0.2 % (0-2); EOSINOPHILS 1.7 % (0-7); HEMOGLOBIN 13.3 g/dL (13.5-17.5); IMMATURE GRANULOCYTES 0.3 % (0-5); LYMPHOCYTES 11.3 % (15-50); MCHC 32.4 g/dL (31.0-37.0); MCV 92.6 fL (80.0-100.0); MEAN PLATELET VOLUME 10.7 fL (7.4-10.4); MONOCYTES 7.8 % (2-11); NEUTROPHILS 78.7 % (40-80); PLATELET COUNT 200 10x3/uL (130-400); RBC 4.43 10x6/uL (4.20-6.10); RDW 13.7 % (11.5-14.5); WBC 11.4 10x3/uL (4.8-10.8)
[2017-05-07 09:20] LABS: CALC OSMOLALITY 301 mosm/kg (275-300); CARBON DIOXIDE 28.4 mmol/L (21.0-32.0); CHLORIDE - SERUM 102 mmol/L (98-107); GLUCOSE 164 mg/dL (74-106); POTASSIUM - SERUM 3.9 mmol/L (3.5-5.1); SODIUM 147 mmol/L (136-145); UREA NITROGEN 29 mg/dL (7-18); eGFR NON AFRICAN AMERICAN 77 mL/min (90-120)
== END | disposition home or self-care (01) ==
LOC: D.CATH 07:37
PROVIDERS: Internal Medicine Interventional Cardiology
DX: I70.219 Atherosclerosis of native arteries of extremities with intermittent claudication, unspecified extremity (principal); Z01.812 Encounter for preprocedural laboratory examination; E78.5 Hyperlipidemia, unspecified; I10 Essential (primary) hypertension; I25.10 Atherosclerotic heart disease of native coronary artery without angina pectoris

== ENCOUNTER 2017-10-09 08:38 | Outpatient (CLI) | payer MEDICARE, OTHER ==
[~2017-10-09] VITALS: Ht 180.3 cm; Wt 94.5 kg
--- NOTE | ~2017-10-09 | OP ---
PATIENT NAME: JUNIOR MCKEON MEDICAL RECORD: [id number] :38 LOCATION:D.[facility] ADMISSION DATE: SURGEON: WALI ABRAMS MD DATE OF OPERATION: 10/09/2017 PROCEDURES: 1. PTCA stent LAD. 2. Left heart catheterization. 3. Selective coronary angiography. 4. Left ventriculogram. INDICATION: Unstable angina and coronary artery disease. PROCEDURE IN DETAIL: After informed consent was obtained and after a detailed description of the risks, benefits as well as alternative therapies, the patient elected to proceed with angiogram and angioplasty. The left femoral area was prepped and draped in normal sterile fashion. Left femoral artery was cannulated via modified Seldinger technique with placement of 6-Icelandic sheath. All catheters exchanged through this sheath. FINDINGS: The left ventriculogram was performed in standard 30-degree GRIGGS view reveals global hypokinesis throughout all segments. Overall ejection fraction is 40%. SELECTIVE CORONARY ANGIOGRAPHY: 1. Left main showed no significant angiographic disease. 2. Left anterior descending has 80% stenosis in the mid vessel. 3. Left circumflex has moderate irregularities, but no flow-limiting stenosis. 4. The right coronary has previously placed stents, these are widely patent with no significant restenosis. No disease elsewise at the RCA or its branches. PTCA STENT OF THE LAD: The stent used was a 2.25 x [address] [place]. Result with 0% residual stenosis. OVERALL IMPRESSION: Successful percutaneous transluminal coronary angioplasty stent of the left anterior descending going from 80% initial stenosis to 0% residual. TRANSINT:[id number] Voice Confirmation ID: [id number] DOCUMENT ID: [id number] WALI ABRAMS MD at 1642 CC: [id number] DICTATION DATE: 10/09/17 1155 HUMAN RESOURCES REPRESENTATIVE: 10/09/17 1203 DEP CLI 10/09/17 [place] [address]
--- NOTE | ~2017-10-09 | HEMODYNAMI ---
PATIENT:JUNIOR MCKEON MEDICAL RECORD: [id number] : 36 LOCATION:[facility] ADMISSION DATE: 10/09/17 Generatedon:10/09/201711:52 Patient name: JUNIOR MCKEON Patient #: [id number] SSN: [id number] : 1940 Date of study: 10/09/2017 Page: Of Hemodynamic Procedure Report Patient Data Patient Demographics Procedure consent was obtained First Name: JUNIOR Gender: Male Last Name: MIKE : 1940 Middle Initial: D Age: 77 year(s) Patient #: [id number] Race: SSN: [id number] Additional ID: [id number] Contact details [address]: [address] [place] [address] [place] State: [place] City: [place] Zip code: [address] Past Medical History History of disease Date Diagnosis Comments CAD Peripheral vascular disease Allergies Allergen Reaction Date Comments Reported Other allergy 04/06/2017 hydrocodone Other allergy 05/07/2017 none Admission Admission Data Admission Date: 10/09/2017 Admission Time: 8:38 Procedure Procedure Types Cath Procedure Diagnostic Procedure [facility] w/Coronaries Sedation Charges Moderate Sedation up to 15 minutes PCI Procedure Coronary Stent Coronary Stent Initial Procedure Description Procedure Date Procedure Date: 10/09/2017 Procedure Start Time: 11:36 Procedure End Time: 11:49 Procedure Staff Name Function Jason Jules MD Performing Physician Jackelin Altamirano RT Monitor Diana Marino RT Scrub Krystian Matute RN Nurse Procedure Data Cath Procedure Fluoroscopy Diagnostic fluoroscopy Total fluoroscopy Time: 3.5 time: 3.5 min min Diagnostic fluoroscopy Total fluoroscopy dose: 354 dose: 354 mGy mGy Contrast Material Contrast Material Type Amount (ml) Isovue 300 108 Entry Location Entry Primary Successful Side Size Upsize Upsize Entry Closure Succes sful Closure Location (Fr) 1 (Fr) 2 (Fr) Remarks Device Remarks Femoral Left 5 Fr 6 Fr Exoseal artery Short Estimated blood loss: 5 ml Diagnostic catheters Device Type Used For End Catheter Placement MULTIPACK Pigtail 5 Fr LV Angiography catheter MULTIPACK JL 4.0 5Fr Left Coronary catheter Angiography MULTIPACK 3DRC 5Fr Right Coronary catheter Angiography Procedure Complications No complications Procedure Medications Medication Administration Route Dosage Oxygen etCO2 Nasal cannula 2 l/min Heparin Flush Bag added to field 2 bags (1000units/500ml NS) 0.9% NaCl I.V. ml/hr Fentanyl I.V. 50 mcg Versed I.V. 1 mg Fentanyl I.V. 50 mcg Versed I.V. 1 mg Fentanyl I.V. 50 mcg Fentanyl I.V. 50 mcg Heparin Bolus I.V. 4000 units Hemodynamics Rest Heart Rate: 79 (bpm) Pressure Samples Time Site Value (mmHg) Purpose Heart Use Rate(bpm) 11:37 LV 164/57,61 Snapshot 81 Snapshots Pre Cath Intra NCS Post Cath Vital Signs Time Heart Resp SPO2 etCO2 NIBP (mmHg) Rhythm Pain Sedation Rate (ipm) (%) (mmHg) Status Level (bpm) 11:07:46 78 15 92 0 167/90(139) NSR 0 (11) 10(A) , No pain 11:12:12 81 17 97 39.1 172/114(152) NSR 0 (11) 10(A) , No pain 11:16:34 78 18 97 36.8 177/96(138) NSR 0 (11) 10(A) , No pain 11:20:51 87 18 96 44.4 128/86(103) NSR 0 (11) 10(A) , No pain 11:25:03 81 17 96 29.3 125/82(97) NSR 0 (11) 10(A) , No pain 11:29:21 80 16 94 41.4 113/69(95) NSR 0 (11) 10(A) , No pain 11:33:26 85 16 93 18 125/82(107) NSR 0 (11) 10(A) , No pain 11:37:38 85 17 95 42.1 141/82(106) NSR 0 (11) 9(A) , No pain 11:41:54 76 17 94 33.1 133/85(124) NSR 0 (11) 9(A) , No pain 11:46:53 90 17 93 57.2 134/93(126) NSR 0 (11) 9(A) , No pain 11:51:28 89 11 93 42.9 Time NSR 0 (11) 9(A) Exceeded , No pain Medications Time Medication Route Dose Verified Delivered Reason Notes Effectiveness by by 11:10:32 Oxygen etCO2 2 Jason Boland Per physician Nasal l/min Jorge A Matute RN cannula 11:10:42 Heparin Flush added 2 Jason Boland used for Bag to bags Jorge A Matute RN procedure (1000units/500ml field NS) 11:10:50 0.9% NaCl I.V. ml/hr Jason Boland Per physician Jorge A Matute RN 11:30:58 Fentanyl I.V. 50 Jason Boland for sedation mcg Jorge A Matute RN 11:31:05 Versed I.V. 1 mg Jason Boland for sedation Jorge A Matute RN 11:34:44 Fentanyl I.V. 50 Jason Boland for sedation mcg Jorge A Matute RN 11:34:49 Versed I.V. 1 mg Jason Boland for sedation Jorge A Matute RN 11:37:17 Fentanyl I.V. 50 Jason Boland for sedation mcg Jorge A Matute RN 11:39:07 Fentanyl I.V. 50 Jason Boland for sedation mcg Jorge A Matute RN 11:44:33 Heparin Bolus I.V. 4000 Jason Boland for units Jorge A Matute RN anticoagulation Procedure Log Time Note 10:29:09 Krystian Matute RN sent for patient. Start room use. 10:29:10 Time tracking: Regular hours (M-F 7:00 - 5:00) 10:29:14 Plan of Care:Hemodynamics will remain stable., Cardiac rhythm will remain stable., Comfort level will be maintained., Respiratory function will remain adequate., Patient/ family verbilizes understanding of procedure., Procedure tolerated without complication., Recovers from procedure without complications.. 10:54:36 Patient received from Pre/Post Procedure Room to CCL 3 Alert and oriented. Tansferred to table in Supine position. 10:54:37 Warm blankets applied, and erika hugger turned on for patient comfort. 10:54:38 Correct patient and procedure confirmed by team. 10:54:39 Signed procedure consent form obtained from patient. 10:54:40 ECG and BP/O2 sat monitors applied to patient. 11:06:26 Vital chart was started 11:08:37 Baseline sample Acquired. 11:08:41 Rhythm: sinus rhythm 11:08:43 Full Disclosure recording started 11:08:47 H&P Date Dictated: 10/09/2017 Within 30 days and on chart., H&P Addendum completed by physician on day of procedure. (MUST COMPLETE FOR ALL OUTPATIENTS). 11:08:48 Pre-procedure instructions explained to patient. 11:08:49 Pre-op teaching completed and patient verbalized understanding. 11:08:50 Family in waiting room. 11:08:51 Patient NPO since Midnight. 11:08:53 Is the patient allergic to Iodine/contrast media? No. 11:08:54 Was the patient premedicated? No 11:08:59 Is patient on blood thinner?Yes 11:09:02 ACC The patient was administered the following blood thiners within the last 24 hours: ACCPlavix 11:09:04 Patient diabetic? Yes. 11:09:05 If diabetic: On Metformin? Yes 11:09:07 If on Metformin: Last Dose? 10/09/2017 11:09:10 Previous problem with sedation/anesthesia? No ? 11:09:13 Snore? Yes 11:09:13 Sleep apnea? Yes 11:09:14 Deviated septum? No 11:09:15 Opens mouth fully? Yes 11:09:16 Sticks out tongue? Yes 11:09:21 Airway obstruction? Yes copd 11:09:33 Dentures? Yes in tight 11:09:41 Pre procedure: right dorsailis pedis pulse 2+ Normal; easily identifiable; not easily obliterated 11:09:42 Pre procedure: left dorsailis pedis pulse 2+ Normal; easily identifiable; not easily obliterated 11:09:44 Patient pain scale 0/10 ?. 11:10:09 IV patent on arrival in left forearm with 0.9% NaCl at O. 11:10:11 Lab results completed and on chart. 11:10:16 Left groin area was prepped with chlora-prep and draped in sterile fashion 11:10:17 Alarms reviewed by R. N. 11:10:18 Sharps counted by scrub and verified by R.N. 11:10:22 Physician arrived 11:10:23 Final Timeout: patient, procedure, and site verified with staff and physician. All members of the team are in agreement. 11:10:24 Left groin site verified by team. 11:10:27 Physical assessment completed. ASA score P 2 - A patient with mild systemic disease as per Jason Jules MD. 11:10:31 Sedation plan: IV Moderate Sedation Medication:Versed, Fentanyl 11:10:32 Oxygen 2 l/min etCO2 Nasal cannula was administered by Krystian Matute RN; Per physician; 11:10:42 Heparin Flush Bag (1000units/500ml NS) 2 bags added to field was administered by Krystian Matute RN; used for procedure; 11:10:50 0.9% NaCl ml/hr I.V. was administered by Krystian Matute RN; Per physician; 11:11:29 Use device set Femoral Dx 11:11:30 ACIST Syringe (62709) opened to sterile field. 11:11:31 Bag Decanter (2002S) opened to sterile field. 11:11:31 Medline Cath Pack ([id number]) opened to sterile field. 11:11:32 DIAGNOSTIC WIRE .035 260cm J wire (436470) opened to sterile field. 11:11:33 ACIST Hand Control (37513) opened to sterile field. 11:11:33 ACIST Manifold (58086) opened to sterile field. 11:11:34 DIAGNOSTIC Multipack 5Fr catheter set (ET5176) opened to sterile field. 11:11:35 Tegaderm 4 x 4 (1626W) opened to sterile field. 11:11:35 SHEATH Prelude 5Fr 0.035 (CXR-9I-10-035) opened to sterile field. 11:30:38 --------ALL STOP TIME OUT------ 11:30:58 Fentanyl 50 mcg I.V. was administered by Krystian Matute RN; for sedation; 11:31:05 Versed 1 mg I.V. was administered by Krystian Matute RN; for sedation; 11:34:44 Fentanyl 50 mcg I.V. was administered by Krystian Matute RN; for sedation; 11:34:49 Versed 1 mg I.V. was administered by Krystian Matute RN; for sedation; 11:35:55 Procedure started. 11:36:09 Local anesthetic to left femerol artery with Lidocaine 2% by Jason Jules MD.INITIAL ACCESS ONLY 11:36:22 A 5 Fr sheath was inserted into the Left Femoral artery 11:36:38 A MULTIPACK Pigtail 5 Fr catheter was advanced over the wire and used for LV Angiography. 11:37:17 Fentanyl 50 mcg I.V. was administered by Krystian Matute RN; for sedation; 11:37:32 LV hemodynamics recorded. 11:37:33 LV gram done using GRIGGS 11:37:35 Injector settings: Ml/sec: 5, Volume: 15, 11:37:44 EF : 40 % 11:37:49 Catheter removed. 11:37:54 A MULTIPACK JL 4.0 5Fr catheter was advanced over the wire and used for Left Coronary Angiography. 11:38:48 LCA angiography performed. 11:38:51 Injector settings: Ml/sec: 3, Volume: 6, 11:39:07 Fentanyl 50 mcg I.V. was administered by Krystian Matute RN; for sedation; 11:39:48 CHOICE PT Extra Support 182cm wire ([id number]) opened to sterile field. 11:39:49 INFLATOR Merit BasixCompak (GH9433) opened to sterile field. 11:39:50 SHEATH 6Fr Prelude ([id number]) opened to sterile field. 11:40:10 Catheter removed. 11:40:16 A MULTIPACK 3DRC 5Fr catheter was advanced over the wire and used for Right Coronary Angiography. 11:41:10 Catheter removed. 11:43:22 Proceeding to intervention. 11:43:36 GUIDE 6FR XBLAD 3.5 catheter (07586399) opened to sterile field. 11:43:46 Sheath upsized to a 6 Fr Short. 11:43:54 6 Fr XBLAD 3.5 guide catheter was inserted over the wire 11:44:00 CHOICE PT wire advanced. 11:44:01 Wire advanced across lesion. 11:44:33 Heparin Bolus 4000 units I.V. was administered by Krystian Matute RN; for anticoagulation; 11:46:06 Place stent Inflation Number: 1 A SHIRAZ RX 2.25 x 18 stent ([id number]) was prepped and advanced across the Mid LAD. The stent was deployed at 13 IMAN for 0:10 (min:sec). 11:46:48 Stent catheter was removed intact over wire. 11:46:49 Wire removed. 11:46:49 Guide catheter removed. 11:47:07 EXOSEAL 6Fr (EX600) opened to sterile field. 11:47:22 Sheath removed intact; hemostasis achieved with Exoseal to the Left Femoral artery. 11:47:24 Procedure ended.(Physican Out) 11:48:04 Fluoroscopy time 03.50 minutes. 11:48:09 Fluoroscopy dose: 354 mGy 11:48:09 Flurop Dose total: 354 11:48:15 Contrast amount:Isovue 300 108ml. 11:48:17 Sharps counted by scrub and verified by R.N. 11:48:23 Insertion/operative site no bleeding no hematoma. 11:48:29 Post-op/insertion site Left Femoral artery dressed using a 4 x 4 and Tegaderm. 11:48:33 Post left femerol artery:stable 11:48:40 Post procedure rhythm: unchanged. 11:48:43 Estimated blood loss: 5 ml 11:48:45 Post procedure instruction explained to patient.Patient verbalizes understanding. 11:48:45 Patient needs reinforcement of post procedure teaching. 11:49:00 Procedure type changed to Cath procedure, Diagnostic procedure, LHC, LHC w/Coronaries, Sedation Charges, Moderate Sedation up to 15 minutes, PCI procedure, Coronary Stent, Coronary Stent Initial 11:49:01 Procedure and supply charges have been captured, reviewed, submitted and are correct. 11:49:05 Procedure Complication : No complications 11:49:07 Vital chart was stopped 11:49:08 See physician's report for complete and final results. 11:49:09 Report given to Pre/Post Procedure Room. 11:49:12 Patient transfered to Pre/Post Procedure Room with Stretcher. 11:49:13 Procedure ended. 11:49:13 Full Disclosure recording stopped 11:49:20 ACC-PCI Only Patient was given prescriptions, or instructed by Jason Jules MD to start/continue the following medications upon discharge: Plavix 11:49:21 End room use (Document Last) Intervention Summary Intervention Notes Time ActionType Lesion and Equipment Used Action# Pressure Duration Attributes 11:46:06 Place stent Mid LAD HSIRAZ RX 2.25 x 1 13 00:10 18 stent ([id number]) Device Usage Item Name Manufacture Quantity Catalog Number Hospital Part Current Minimal Lot# / Charge Number Stock Stock Serial# Code ACIST Syringe Acist 1 86612 690676 225322 359805 20 (18672) [employer] Bag Decanter Microtek 1 [id number] 44941 975160 5 () Medical Inc. Medline Cath Cardinal 1 [id number] 839862 34636 842153 5 Pack Health ([id number]) DIAGNOSTIC WIRE [facility] 1 602190 992132 066577 259383 30 .035 260cm J wire (827111) ACIST Hand Acist 1 24513 809727 370972 632760 5 Control (66193) [employer] Inc ACIST Manifold Acist 1 12930 696980 648481 087496 5 (08222) [employer] Systems Inc DIAGNOSTIC Cardinal 1 HC3685 013473 81140 713746 30 Multipack 5Fr Health catheter set (EX3480) Tegaderm 4 x 4 3M 1 1626W 973829 853239 392877 5 (1626W) SHEATH Prelude Merit 1 VBQ-1U-76-035 216721 740044 213517 5 5Fr 0.035 Medical ([id number]-9Q-57-035) MULTIPACK Cardinal 1 395240 5 Pigtail 5 Fr Health catheter MULTIPACK JL Cardinal 1 066052 5 4.0 5Fr Health catheter CHOICE PT Extra Haines 1 [id number] 381768 036725 388199 5 Support 182cm Scientific wire ([id number]) INFLATOR Merit Merit 1 KA8616 100394 182477 942161 15 BasixCompak Medical (QJ8203) SHEATH 6Fr Merit 1 [id number] 418480 086296 589291 5 Prelude Medical ([id number]) MULTIPACK 3DRC Cardinal 1 715689 5 5Fr catheter Health GUIDE 6FR XBLAD Cardinal 1 [id number] 395519 631579 104608 10 3.5 catheter Health ([id number]) SHIRAZ RX 2.25 x Medtronic 1 [id number] 481734 6436483 177608 5 [id number] 18 stent ([id number]) EXOSEAL 6Fr Cardinal 1 EX600 545829 022700 932198 10 (EX600) Health Signature Audit [place] Stage Time Signature Unsigned Intra-Procedure 10/09/2017 Jackelin Altamirano 11:52:37 AM RT(R) Signatures Monitor : Jackelin Altamirano RT Signature : Date : Time : [id number] [place] [address]
[2017-10-09] MEDS ORDERED: GLIMEPIRIDE2 MG PO (09:36)
[2017-10-09 09:41] VITALS: BP 151/71; Ht 180.3 cm; Wt 94.5 kg
[2017-10-09 10:06] LABS: BASOPHILS 0.3 % (0-2); EOSINOPHILS 2.6 % (0-7); HEMATOCRIT 38.2 % (42.0-54.0); HEMOGLOBIN 12.3 g/dL (13.5-17.5); IMMATURE GRANULOCYTES 0.2 % (0-5); LYMPHOCYTES 8.7 % (15-50); MCH 29.7 pg (26.0-34.0); MCHC 32.2 g/dL (31.0-37.0); MCV 92.3 fL (80.0-100.0); MEAN PLATELET VOLUME 11.2 fL (7.4-10.4); MONOCYTES 7.5 % (2-11); NEUTROPHILS 80.7 % (40-80); RBC 4.14 10x6/uL (4.20-6.10); RDW 14.4 % (11.5-14.5); WBC 11.2 10x3/uL (4.8-10.8)
[2017-10-09 10:11] LABS: PLATELET COUNT 266 10x3/uL (130-400)
[2017-10-09 11:09] LABS: CALC OSMOLALITY 285 mosm/kg (275-300); CALCIUM 8.1 mg/dL (8.5-10.1); CARBON DIOXIDE 31.3 mmol/L (21.0-32.0); CHLORIDE - SERUM 108 mmol/L (98-107); GLUCOSE 93 mg/dL (74-106); POTASSIUM - SERUM 4.4 mmol/L (3.5-5.1); SODIUM 143 mmol/L (136-145); UREA NITROGEN 16 mg/dL (7-18); eGFR NON AFRICAN AMERICAN 76 mL/min (90-120)
[2017-11-07] MEDS ORDERED: MOBIC7.5 MG PO (09:32)
[2017-11-07] MEDS ORDERED: NORVASC5 MG PO (09:33)
[2017-11-07] MEDS ORDERED: METOPROLOL TART25 MG PO (09:34)
[2017-11-07] MEDS ORDERED: SINGULAIR10 MG PO (09:34)
[2017-11-07] MEDS ORDERED: ZANTAC300 MG PO (09:35)
[2017-11-07] MEDS ORDERED: CENTRUM SILVER1 EACH PO (09:35)
== END 2017-10-09 16:00 ==
LOC: D.CATH 08:38
PROVIDERS: Internal Medicine Interventional Cardiology
DX: I25.110 Atherosclerotic heart disease of native coronary artery with unstable angina pectoris (principal)
CPT/HCPCS: C9600; 93458

== ENCOUNTER 2017-10-27 00:40 | Emergency (ER) | payer MEDICARE, OTHER ==
[~2017-10-27] VITALS: Ht 180.3 cm; Wt 95.5 kg
[~2017-10-27 00:40] MED LIST changes: +GLIMEPIRIDE2 MG PO
[2017-10-27 00:44] VITALS: Ht 180.3 cm; Wt 95.5 kg
[2017-10-27 01:07] LABS: BASOPHILS 0.2 % (0-2); EOSINOPHILS 2.4 % (0-7); HEMATOCRIT 38.5 % (42.0-54.0); HEMOGLOBIN 12.3 g/dL (13.5-17.5); IMMATURE GRANULOCYTES 0.3 % (0-5); LYMPHOCYTES 18.6 % (15-50); MCH 29.9 pg (26.0-34.0); MCHC 31.9 g/dL (31.0-37.0); MCV 93.4 fL (80.0-100.0); MEAN PLATELET VOLUME 10.5 fL (7.4-10.4); MONOCYTES 9.5 % (2-11); PLATELET COUNT 216 10x3/uL (130-400); RBC 4.12 10x6/uL (4.20-6.10); WBC 9.7 10x3/uL (4.8-10.8)
[2017-10-27 01:31] LABS: ALKALINE PHOSPHATASE 74 U/L (46-116); ALT (SGPT) 25 U/L (10-68); BILIRUBIN - TOTAL 0.16 mg/dL (0.2-1.3); CALC OSMOLALITY 289 mosm/kg (275-300); CALCIUM 8.2 mg/dL (8.5-10.1); CARBON DIOXIDE 28.5 mmol/L (21.0-32.0); CHLORIDE - SERUM 108 mmol/L (98-107); CREATINE KINASE 39 UL (21-232); POTASSIUM - SERUM 4.4 mmol/L (3.5-5.1); PROTEIN - SERUM 6.2 g/dL (6.4-8.2); SODIUM 143 mmol/L (136-145); TROPONIN-I 0.022 ng/mL (0.000-0.060); UREA NITROGEN 21 mg/dL (7-18); eGFR NON AFRICAN AMERICAN 76 mL/min (90-120)
[2017-10-27 01:32] LABS: GLUCOSE 141 mg/dL (74-106)
[2017-10-27] MEDS ORDERED: ISOSORBIDE MONO30 M1 PO (01:48)
[2017-10-27 04:40] VITALS: BP 136/78
[2017-11-07] MEDS ORDERED: MOBIC7.5 MG PO (09:32)
[2017-11-07] MEDS ORDERED: NORVASC5 MG PO (09:33)
[2017-11-07] MEDS ORDERED: METOPROLOL TART25 MG PO (09:34)
[2017-11-07] MEDS ORDERED: SINGULAIR10 MG PO (09:34)
[2017-11-07] MEDS ORDERED: CENTRUM SILVER1 EACH PO (09:35)
[2017-11-07] MEDS ORDERED: ZANTAC300 MG PO (09:35)
== END 2017-10-27 04:40 | disposition home or self-care (01) ==
LOC: D.ER 00:40
PROVIDERS: Emergency Medicine
DX: I20.8 Other forms of angina pectoris (principal); I25.10 Atherosclerotic heart disease of native coronary artery without angina pectoris; E11.9 Type 2 diabetes mellitus without complications; I10 Essential (primary) hypertension; I73.9 Peripheral vascular disease, unspecified; J44.9 Chronic obstructive pulmonary disease, unspecified; K21.9 Gastro-esophageal reflux disease without esophagitis; R00.0 Tachycardia, unspecified; I44.0 Atrioventricular block, first degree

== ENCOUNTER → 2017-11-07 08:47 | Outpatient (CLI) | payer MEDICARE, OTHER ==
[~2017-11-07] VITALS: Ht 177.8 cm; Wt 94.5 kg
--- NOTE | ~2017-11-07 | OP ---
PATIENT NAME: JUNIOR MCKEON MEDICAL RECORD: [id number] :38 LOCATION:D.[facility] ADMISSION DATE: SURGEON: WALI ABRAMS MD DATE OF OPERATION: 11/07/2017 DATE OF SERVICE: 11/07/2017 PROCEDURES: 1. PTCA of left circumflex. 2. Left heart catheterization. 3. Selective coronary angiography. 4. Left ventriculogram. INDICATION: Angina and coronary artery disease. PROCEDURE IN DETAIL: After informed consent was obtained and after a detailed description of the risks, benefits as well as alternative therapies, the patient elected to proceed with angiogram and angioplasty. The right femoral area was prepped and draped in normal sterile fashion. The right femoral artery was cannulated via modified Seldinger technique with placement of 6-Bulgarian sheath. All catheters exchanged through this sheath. FINDINGS: Left ventriculogram was performed in standard 30-degree GRIGGS view, reveals global hypokinesis throughout all segments. Overall ejection fraction 35%. SELECTIVE CORONARY ANGIOGRAPHY: 1. Left main is with no significant angiographic disease. 2. Left anterior descending has mild irregularities, but no flow-limiting stenosis. Previously placed stents are widely patent. 3. Left circumflex has previously placed stent in the first obtuse marginal. This is widely patent. There was a small branch that descends in the stented area that is 95% stenosed. 4. Right coronary has mild irregularities, but no flow-limiting stenosis. Previously placed stents are widely patent. PTCA OF THE LEFT CIRCUMFLEX: We were able to traverse the 95% stenosis between the strut stents with a Fielder wire and balloon this with a 1.0 and 1.5 balloon. OVERALL IMPRESSION: Successful percutaneous transluminal coronary angioplasty of the left circumflex for a small branch that takes off in the stented area that even though it is a small caliber, extends quite a ways with multiple branches and covers a fair amount of myocardium. We were able to balloon this with 1.0 and 1.0 balloon. Nothing else would cross this branch through the stent struts. TRANSINT:[id number] Voice Confirmation ID: [id number] DOCUMENT ID: [id number] OPERATIVE REPORT [id number] JUNOIR MCKEON WALI ABRAMS MD at 1722 CC: [id number] DICTATION DATE: 11/07/17 1111 OVERAGE SHORTAGE AND DAMAGE CLERK: 11/07/17 1137 REG [facility] [address] [place] [address]
--- NOTE | ~2017-11-07 | HEMODYNAMI ---
PATIENT:JUNIOR MCKEON MEDICAL RECORD: [id number] : 36 LOCATION:[facility] ADMISSION DATE: 11/07/17 Generatedon:11/07/201711:10 Patient name: JUNIOR MCKEON Patient #: [id number] SSN: [id number] : 1940 Date of study: 11/07/2017 Page: Of Hemodynamic Procedure Report Patient Data Patient Demographics Procedure consent was obtained First Name: JUNIOR Gender: Male Last Name: MIKE : 1940 Middle Initial: D Age: 77 year(s) Patient #: [id number] Race: SSN: [id number] Additional ID: [id number] Contact details Address: [address] [place] [address] [place] State: [place] City: [place] Zip code: [address] Past Medical History History of disease Date Diagnosis Comments CAD Peripheral vascular disease Allergies Allergen Reaction Date Comments Reported Other allergy 04/06/2017 hydrocodone Other allergy 05/07/2017 none Other allergy 11/07/2017 Admission Admission Data Admission Date: 11/07/2017 Admission Time: 8:47 Admit Source: Other Lab Results Lab Result Date: 11/07/2017 Lab Result Time: 6:00 Biochemistry Name Units Result Min Max BUN mg/dl 18 --(---*)-- 7 18 Creatinine mg/dl 1.1 --(--*-)-- 0.6 1.3 CBC Name Units Result Min Max Hematocrit % 36.7 *-(----)-- 42 54 Hemoglobin g/dl 11.7 *-(----)-- 13.5 17.5 Procedure Procedure Types Cath Procedure Diagnostic Procedure LHC LHC w/Coronaries Sedation Charges Moderate Sedation up to 15 minutes PCI Procedure PTCA PTCA Initial Procedure Description Procedure Date Procedure Date: 11/07/2017 Procedure Start Time: 10:42 Procedure End Time: 11:07 Procedure Staff Name Function Jason Jules MD Performing Physician Jackelin Altamirano RT Monitor Noreen Dawson RT Scrub Krystian Matute RN Nurse Yoandy Domingo RT Base Filler Operator Procedure Data Cath Procedure Fluoroscopy Diagnostic fluoroscopy Total fluoroscopy Time: time: 11.3 min 11.3 min Diagnostic fluoroscopy Total fluoroscopy dose: dose: 2176 mGy 2176 mGy Contrast Material Contrast Material Type Amount (ml) Isovue 300 136 Entry Location Entry Primary Successful Side Size Upsize Upsize Entry Closure Succes sful Closure Location (Fr) 1 (Fr) 2 (Fr) Remarks Device Remarks Femoral Left 5 Fr 6 Fr Exoseal artery Short Estimated blood loss: 5 ml Diagnostic catheters Device Type Used For End Catheter Placement MULTIPACK Pigtail 5 Fr Procedure catheter MULTIPACK JL 4.0 5Fr Procedure catheter MULTIPACK 3DRC 5Fr Procedure catheter Procedure Complications No complications Procedure Medications Medication Administration Route Dosage Oxygen etCO2 Nasal cannula 2 l/min Heparin Flush Bag added to field 2 bags (1000units/500ml NS) 0.9% NaCl I.V. 100 ml/hr Fentanyl I.V. 50 mcg Versed I.V. 1 mg Fentanyl I.V. 50 mcg Versed I.V. 1 mg Heparin Bolus I.V. 4000 units Fentanyl I.V. 50 mcg Hemodynamics Rest HGB: 11.7 (g/dl) Heart Rate: 59 (bpm) Snapshots Pre Cath Intra NCS Post Cath Vital Signs Time Heart Resp SPO2 etCO2 NIBP (mmHg) Rhythm Pain Sedation Rate (ipm) (%) (mmHg) Status Level (bpm) 10:31:02 81 17 95 26.2 185/104(161) NSR 0 (11) 10(A) , No pain 10:35:28 80 17 93 16.5 195/96(159) NSR 0 (11) 10(A) , No pain 10:39:57 77 16 93 0 147/82(128) NSR 0 (11) 9(A) , No pain 10:44:15 73 16 95 0 123/73(100) NSR 0 (11) 9(A) , No pain 10:48:23 81 17 94 0 135/76(102) NSR 0 (11) 9(A) , No pain 10:52:35 81 18 84 0 150/79(119) NSR 0 (11) 9(A) , No pain 10:56:51 81 14 94 44.2 145/88(129) NSR 0 (11) 9(A) , No pain 11:02:00 85 16 95 37.5 172/101(140) NSR 0 (11) 9(A) , No pain 11:06:20 86 16 95 48.7 169/96(139) NSR 0 (11) 9(A) , No pain 11:09:06 186 17 93 51.7 168/98(147) NSR 0 (11) 9(A) , No pain Medications Time Medication Route Dose Verified Delivered Reason Notes Effectiveness by by 10:28:54 Oxygen etCO2 2 Jason Krystian Per physician Nasal l/min Jorge A Matute RN cannula 10:29:03 Heparin Flush added 2 Jason Krystian used for Bag to bags Jorge A Matute RN procedure (1000units/500ml field NS) 10:29:17 0.9% NaCl I.V. 100 Jason Krystian Per physician ml/hr Jorge A Matute RN 10:37:42 Fentanyl I.V. 50 Jason Krystian for sedation mcg Jorge A Matute RN 10:37:48 Versed I.V. 1 mg Jason Krystian for sedation Jorge A Matute RN 10:41:42 Fentanyl I.V. 50 Jason Krystian for sedation mcg Jorge A Matute RN 10:41:46 Versed I.V. 1 mg Jason Krystian for sedation Jorge A Matute RN 10:48:24 Heparin Bolus I.V. 4000 Jason Krystian for units Jorge A Matute RN anticoagulation 11:02:21 Fentanyl I.V. 50 Jason Krystian for sedation mcg Jorge A Matute RN Procedure Log Time Note 10:15:59 Yoandy Domingo RT(R) sent for patient. Start room use. 10:20:43 Informed consent obtained and on chart 10:26:55 Admit Source: Other 10:26:57 Diagnostic Cath status Elective 10:27:07 Patient received from Pre/Post Procedure Room to CCL 2 Alert and oriented. Tansferred to table in Supine position. 10:27:08 Warm blankets applied, and erika hugger turned on for patient comfort. 10:27:09 Correct patient and procedure confirmed by team. 10:27:09 ECG and BP/O2 sat monitors applied to patient. 10:27:21 H&P Date Dictated: 11/05/2017 Within 30 days and on chart., H&P Addendum completed by physician on day of procedure. (MUST COMPLETE FOR ALL OUTPATIENTS). 10:27:22 Pre-procedure instructions explained to patient. 10:27:22 Pre-op teaching completed and patient verbalized understanding. 10:27:24 Family in waiting room. 10:27:27 Patient NPO since Midnight. 10:27:51 Patient allergic to Other allergy 10:28:00 NKDA 10:28:02 Is the patient allergic to Iodine/contrast media? No. 10:28:03 Is patient on blood thinner?Yes 10:28:05 ACC The patient was administered the following blood thiners within the last 24 hours: ACCPlavix 10:28:06 Patient diabetic? Yes. 10:28:07 If diabetic: On Metformin? Yes 10:28:09 If on Metformin: Last Dose? 11/07/2017 10:28:12 Previous problem with sedation/anesthesia? No ? 10:28:13 Snore? Yes 10:28:14 Sleep apnea? Yes 10:28:15 Deviated septum? No 10:28:15 Opens mouth fully? Yes 10:28:16 Sticks out tongue? Yes 10:28:19 Airway obstruction? Yes copd 10:28:22 Dentures? Yes in tight 10:28:25 Pre procedure: left dorsailis pedis pulse 2+ Normal; easily identifiable; not easily obliterated 10:28:27 Patient pain scale 0/10 ?. 10:28:39 IV patent on arrival in left forearm with 0.9% NaCl at KVO. 10:28:48 Vital chart was started 10:28:54 Oxygen 2 l/min etCO2 Nasal cannula was administered by Krystian Matute RN; Per physician; 10:29:03 Heparin Flush Bag (1000units/500ml NS) 2 bags added to field was administered by Krystian Matute RN; used for procedure; 10::17 0.9% NaCl 100 ml/hr I.V. was administered by Krystian Matute RN; Per physician; 10::18 Lab Result : BUN 18 mg/dl ::18 Lab Result : Creatinine 1.1 mg/dl ::18 Lab Result : Hematocrit 36.7 % ::18 Lab Result : Hemoglobin 11.7 g/dl 10:29:20 Lab results completed and on chart. 10:29:22 Left groin area was prepped with chlora-prep and draped in sterile fashion 10:: Alarms reviewed by R. N. 10:: Sharps counted by scrub and verified by R.N. 10:29:25 Use device set Femoral Dx 10:29:26 ACIST Syringe (68830) opened to sterile field. 10:29:27 Bag Decanter (2002S) opened to sterile field. 10:29:27 Medline Cath Pack ([id number]) opened to sterile field. 10:29:28 ACIST Manifold (77649) opened to sterile field. 10:29:28 ACIST Hand Control (07773) opened to sterile field. 10:29:29 Tegaderm 4 x 4 (1626W) opened to sterile field. 10:29:31 SHEATH Prelude 5Fr 0.035 (VVZ-1A-68-035) opened to sterile field. 10:29:32 DIAGNOSTIC Multipack 5Fr catheter set (NH7506) opened to sterile field. 10:29:33 DIAGNOSTIC WIRE .035 260cm J wire (917932) opened to sterile field. 10:29:37 Baseline sample Acquired. 10:29:47 Rhythm: sinus rhythm 10:29:50 Full Disclosure recording started 10:30:09 Baseline sample Acquired. 10:33:30 Physician arrived 10:33:30 --------ALL STOP TIME OUT------ 10:33:31 Final Timeout: patient, procedure, and site verified with staff and physician. All members of the team are in agreement. 10:33:33 Left groin site verified by team. 10:33:36 Physical assessment completed. ASA score P 2 - A patient with mild systemic disease as per Jason Jules MD. 10:33:40 Sedation plan: IV Moderate Sedation Medication:Versed, Fentanyl 10:37:42 Fentanyl 50 mcg I.V. was administered by Krystian Matute RN; for sedation; 10:37:48 Versed 1 mg I.V. was administered by Krystian Matute RN; for sedation; 10:41:42 Fentanyl 50 mcg I.V. was administered by Krystian Matute RN; for sedation; 10:41:46 Versed 1 mg I.V. was administered by Krystian Matute RN; for sedation; 10:42:38 Procedure started. 10:42:58 Local anesthetic to left femerol artery with Lidocaine 2% by Jason Jules MD.INITIAL ACCESS ONLY 10:43:14 A 5 Fr sheath was inserted into the Left Femoral artery 10:43:24 A MULTIPACK Pigtail 5 Fr catheter was advanced over the wire and used for Procedure. 10:43:30 LV gram done using GRIGGS 10:43:34 LV hemodynamics recorded. 10:43:46 EF : 30 % 10:43:49 Catheter removed. 10:43:55 A MULTIPACK JL 4.0 5Fr catheter was advanced over the wire and used for Procedure. 10:44:36 LCA angiography performed. 10:45:09 Catheter removed. 10:45:22 A MULTIPACK 3DRC 5Fr catheter was advanced over the wire and used for Procedure. 10:45:52 RCA angiography performed. 10:46:05 Catheter removed. 10:46:06 Proceeding to intervention. 10:46:47 SHEATH Prelude 6Fr 0.035 (AAX-5Z-59-035) opened to sterile field. 10:46:48 CHOICE PT Extra Support 182cm wire ([id number]) opened to sterile field. 10:46:49 INFLATOR Merit BasixCompak (IX9161) opened to sterile field. 10:47:05 Sheath upsized to a 6 Fr Short. 10:47:56 GUIDE 6FR XBLAD 4.0 catheter (24513135) opened to sterile field. 10:48:09 6 Fr XB 4 guide catheter was inserted over the wire 10:48:24 Heparin Bolus 4000 units I.V. was administered by Krystian Matute RN; for anticoagulation; 10:50:11 Guide Catheter removed. unable to cannulate vessel. 10:50:15 GUIDE 6FR XB 3.5 catheter ([id number]) opened to sterile field. 10:50:44 6 Fr XB 3.5 guide catheter was inserted over the wire 10:50:58 CHOICE PT wire advanced. 10:53:45 Wire removed. 10:53:57 FIELDER XT J 300cm guide wire ([id number]) opened to sterile field. 10:58:13 The MAVERICK 1.5 X 9 balloon ([id number]) was advanced and then removed because of failure to cross lesion 11:01:01 Inflate balloon Inflation number: 1 A SAPPHIRE was prepped and advanced across the Mid CX, then inflated to 21 IMAN for 0:10 (min:sec). 11::36 Balloon removed over the wire. 11:02:21 Fentanyl 50 mcg I.V. was administered by Krystian Matute RN; for sedation; 11:03:04 Inflate balloon Inflation number: 2 A EUPHORA 1.5 x 20 Balloon ([id number]) was prepped and advanced across the Mid CX, then inflated to 19 IMAN for 0:10 (min:sec). 11:04:44 Balloon removed over the wire. 11:04:45 Wire removed. 11:04:45 Guide catheter removed. 11:04:52 EXOSEAL 6Fr (EX600) opened to sterile field. 11:05:01 Sheath removed intact; hemostasis achieved with Exoseal to the Left Femoral artery. 11:05:03 Procedure ended.(Physican Out) 11:05:31 Fluoroscopy time 11.30 minutes. 11:05:36 Fluoroscopy dose: 2176 mGy 11:05:36 Flurop Dose total: 2176 11:05:44 Contrast amount:Isovue 300 136ml. 11:05:46 Sharps counted by scrub and verified by R.N. 11:05:46 Insertion/operative site no bleeding no hematoma. 11:05:49 Post-op/insertion site Left Femoral artery dressed using a 4 x 4 and Tegaderm. 11:05:53 Post left femerol artery:stable 11:05:54 Post Procedure Pulses reassessed and unchanged 11:05:56 Post procedure rhythm: unchanged. 11:05:59 Estimated blood loss: 5 ml 11:06:00 Post procedure instruction explained to patient.Patient verbalizes understanding. 11:06:01 Patient needs reinforcement of post procedure teaching. 11:06:34 Procedure type changed to Cath procedure, Diagnostic procedure, LHC, LHC w/Coronaries, Sedation Charges, Moderate Sedation up to 15 minutes, PCI procedure, PTCA, PTCA Initial 11:06:36 Procedure and supply charges have been captured, reviewed, submitted and are correct. 11:06:40 Procedure Complication : No complications 11:06:52 Vital chart was stopped 11:06:52 See physician's report for complete and final results. 11:06:55 Report given to Pre/Post Procedure Room. 11:06:58 Patient transfered to Pre/Post Procedure Room with Stretcher. 11:07:00 Procedure ended. 11:07:00 Full Disclosure recording stopped 11:07:06 ACC-PCI Only Patient was given prescriptions, or instructed by Jason Jules MD to start/continue the following medications upon discharge: Plavix 11:07:10 End room use (Document Last) Intervention Summary Intervention Notes Time ActionType Lesion and Equipment Action# Pressure Duration Attributes Used 10:58:13 Discard MAVERICK 1.5 Balloon X 9 balloon ([id number]) 11:01:01 Inflate Mid CX SAPPHIRE 1 21 00:10 balloon 11:03:04 Inflate Mid CX EUPHORA 1.5 2 19 00:10 balloon x 20 Balloon ([id number]) Device Usage Item Name Manufacture Quantity Catalog Number Hospital Part Current Minimal Lot# / Charge Number Stock Stock Serial# Code ACIST Syringe Acist 1 28648 588189 729019 096971 20 (37466) [employer] Bag Decanter Microtek 1 2001S 031078 16141 598312 5 (2001S) Medical Inc. Medline Cath Cardinal 1 [id number] 868883 60855 202605 5 Pack Health ([id number]) ACIST Manifold Acist 1 08805 470372 082368 982318 5 (25756) [employer] Inc ACIST Hand Acist 1 30828 495595 282198 051682 5 Control (26219) [employer] Inc Tegaderm 4 x 4 3M 1 1626W 970190 670652 739597 5 (1626W) SHEATH Prelude Merit 1 WIE-8S-38-035 859032 386927 962439 5 5Fr 0.035 Medical (CNM-6R-77-035) DIAGNOSTIC Cardinal 1 TQ3798 844517 28323 985520 30 Multipack 5Fr Health catheter set (NY8317) DIAGNOSTIC WIRE [facility] 1 843221 277158 119070 357225 30 .035 260cm J wire (126155) MULTIPACK Cardinal 1 136500 5 Pigtail 5 Fr Health catheter MULTIPACK JL Cardinal 1 200928 5 4.0 5Fr Health catheter MULTIPACK 3DRC Cardinal 1 362414 5 5Fr catheter Health SHEATH Prelude Merit 1 EVY-7T-58-35 477853 2297810 740887 5 6Fr 0.035 Medical (GQS-4O-02-035) CHOICE PT Extra Medora 1 [id number] 906467 124418 128245 5 Support 182cm Scientific wire ([id number]) INFLATOR Merit Merit 1 FZ3801 232638 118555 740059 15 BasixCompak Medical (RT5654) GUIDE 6FR XBLAD Cardinal 1 [id number] 130620 986379 530631 3 4.0 catheter Health (98602520) GUIDE 6FR XB Cardinal 1 39027028 500719 020164 915219 2 3.5 catheter Health (66268476) FIELDER XT J [place] 1 [id number] 327436 406898 904543 5 300cm guide Vascular wire ([id number]) MAVERICK 1.5 X Medora 1 [id number] 712147 081308 062184 1 [id number] 9 balloon Scientific ([id number]) SAPPHIRE Unknown 1 0 0 EUPHORA 1.5 x Medtronic 1 [id number] 458001 039323 696083 5 [id number] 20 Balloon ([id number]) EXOSEAL 6Fr Cardinal 1 EX600 582878 008656 652060 10 (EX600) Health Signature Audit [place] Stage Time Signature Unsigned Intra-Procedure 11/07/2017 Jackelin Altamirano 11:10:06 AM RT(R) Signatures Monitor : Jackelin Altamirano RT Signature : Date : Time : [facility] [address] [place] [address]
[~2017-11-07 08:47] MED LIST changes: +CENTRUM SILVER1 EACH PO; +ISOSORBIDE MONO30 M1 PO; +ISOSORBIDE MONO60 M1 PO; +METOPROLOL TART25 MG PO; +MOBIC7.5 MG PO; +ZANTAC300 MG PO
[2017-11-07 09:46] VITALS: BP 168/89; Ht 177.8 cm; Wt 94.5 kg
[2017-11-07 09:49] LABS: BASOPHILS 0.2 % (0-2); EOSINOPHILS 1.6 % (0-7); HEMATOCRIT 36.7 % (42.0-54.0); HEMOGLOBIN 11.7 g/dL (13.5-17.5); IMMATURE GRANULOCYTES 0.3 % (0-5); LYMPHOCYTES 12.2 % (15-50); MCH 29.6 pg (26.0-34.0); MCHC 31.9 g/dL (31.0-37.0); MCV 92.9 fL (80.0-100.0); MEAN PLATELET VOLUME 10.6 fL (7.4-10.4); MONOCYTES 6.7 % (2-11); PLATELET COUNT 184 10x3/uL (130-400); RBC 3.95 10x6/uL (4.20-6.10); RDW 13.8 % (11.5-14.5); WBC 11.1 10x3/uL (4.8-10.8)
[2017-11-07 09:58] LABS: CALCIUM 8.7 mg/dL (8.5-10.1); CARBON DIOXIDE 30.1 mmol/L (21.0-32.0); CREATININE - SERUM 1.1 mg/dL (0.6-1.3); POTASSIUM - SERUM 4.1 mmol/L (3.5-5.1)
== END | disposition home or self-care (01) ==
LOC: D.CATH 08:47
PROVIDERS: Internal Medicine Interventional Cardiology
DX: I25.119 Atherosclerotic heart disease of native coronary artery with unspecified angina pectoris (principal); Z01.812 Encounter for preprocedural laboratory examination

== ENCOUNTER 2017-11-09 16:38 | Inpatient (IN) | payer MEDICARE, OTHER ==
[~2017-11-09] VITALS: Ht 177.8 cm; Wt 93.3 kg
--- NOTE | ~2017-11-09 | EC ---
PATIENT:JUNIOR MCKEON DATE OF SERVICE: 11/09/17 SEX: M MEDICAL RECORD: [id number] DATE OF : 38 LOCATION:D. D.212 AGE OF PATIENT: 77 ADMISSION DATE: 11/09/17 REFERRING PHYSICIAN: INTERPRETING PHYSICIAN: WALI JULES MD ECHOCARDIOGRAM REPORT ECHO CHARGES 4 ECHO COMPLETE Date: 11/10/17 CLINICAL DIAGNOSIS: SOB ECHOCARDIOGRAPHIC MEASUREMENTS (adult normal given) AC root (d.<3.7cm) 2.5 cm LV Septum d (<1.2 cm> 1.7 cm Valve Excursion 1.3 cm LV Septum (systole) 1.8 cm Left Atria (s.<4.0cm> 3.4 cm LVPW d(<1.2cm) 1.3 cm RV (d.<2.3cm) 3.0 cm LVPW (sytole) 1.3 cm LV diastole(<5.6CM) 5.9 cm MV E-F(>70mm/sec) cm LV systole 5.5 cm LVOT Diameter 1.9 cm MV exc.(>10mm) cm Est.ejection fraction (50-75%) % DOPPLER: LVIT cm/sec A 111 cm/sec E 44 cm/sec LA cm/sec RVSP 14.3 mmHg LVOT 89 cm/sec AOP1/2T m/s Asc. Ao 137 cm/sec RVOT 62 cm/sec RA cm/sec PA 62 cm/sec AV Gradient Peak 7.5 mmHg AV Mean 4.1 mmHg AV Area 2.5 cm MV Gradient Peak 7.7 mmHg MV Mean 3.9 mmHg MV Area cm COMMENTS: Insole Department Worker: Ishmael NATIONESPERANZA FRIDA Plaster Caster: 1 Dr. Jules TAPE# PACS Pericardial Effusion N DATE OF SERVICE: 11/10/2017 FINDINGS: 1. Left ventricular chamber size is within normal limits. Left ventricular systolic function is mildly reduced, overall ejection fraction 40% to 45%. 2. Left atrium, right atrium, and right ventricular chamber sizes are within normal limits. 3. Valvular structures have normal structure and motion. 4. Doppler interrogation reveals no significant valvular insufficiency or stenosis, and pulmonary systolic pressure is normal estimated at 15 mmHg. ECHOCARDIOGRAM REPORT [id number] JUNIOR MCKEON 5. No evidence of pericardial effusion or left ventricular thrombus. TRANSINT:[id number] Voice Confirmation ID: [id number] DOCUMENT ID: [id number] WALI JULES MD at 1823 CC: [id number] DICTATION DATE: 11/10/17 1058 TURBINE OPERATOR: 11/10/17 1133 DIS IN 11/12/17 [facility] [address] [id number]
--- NOTE | ~2017-11-09 | HP ---
PATIENT: JUNIOR MCKEON MEDICAL RECORD: [id number] ACCOUNT: [id number] LOCATION:[address] : [birth year] ADMISSION DATE: 11/09/17 PCP: No PCP HISTORY AND PHYSICAL EXAMINATION CHIEF COMPLAINT: Shortness of breath, substernal chest pain. HISTORY OF PRESENT ILLNESS: The patient is a 77-year-old gentleman with a known history of having arteriosclerotic heart disease. He apparently has had a total of 14 stents, the most recent one was done Sunday or of this week. He presents complaining of increasing shortness of breath with some chest pain, felt that the patient warranted admission. PAST MEDICAL HISTORY: Significant that he has had 14 stents. He has also had peripheral vascular disease. He has had lumbar surgery in the past. He has had COPD. The patient has had aortofemoral bypass in the past, hyperlipidemia, hypogonadism, peripheral vascular disease, history of renal calculi, BPH. FAMILY HISTORY: Mother in her 70s, emphysema. Father had stomach carcinoma, in his 40s. MEDICATIONS: Includes acetylcholine 100 mg per mL solution, 5 mL 3 times a day; albuterol 2.5 per 3 mL, 3 mL every 4-6 hours, nebulized q.4-6 hours; amlodipine 5 mg once a day, aspirin 325 mg once a day, atorvastatin 20 mg once a day, Plavix 75 mg once a day, Dexilant 30 mg once a day, glimepiride 2 mg every day, isosorbide mononitrate 30 mg ER 1 p.o. every day, losartan 50 mg once a day, meloxicam 15 mg once a day, metformin 1000 mg p.o. b.i.d., Singulair 10 mg 1 p.o. every day, nitroglycerin 0.4 mg sublingual q.5 minutes p.r.n. chest pain, prednisone 5 mg daily, Zantac 150 mg daily, Symbicort 160/4.5 two puffs b.i.d., Spiriva 18 mcg once daily. ALLERGIES: HYDROCODONE. SOCIAL HISTORY: The patient was born and raised in [place]. 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 He is , but does have a female maintenance associate at the present time. REVIEW OF SYSTEMS: GENERAL: He denies any headache, seizure or syncope. Denies change in visual or auditory acuity. PULMONARY: He does report having increasing shortness of breath. CARDIOVASCULAR: He has had left-sided chest pain radiating down the left arm. Also has had left neck pain. GASTROINTESTINAL: He has had no nausea, vomiting, melena or hematochezia. GENITOURINARY: No urgency, frequency, or dysuria. PHYSICAL EXAMINATION: VITAL SIGNS: In the Emergency Room, his temperature was 96.8, pulse is 89, respirations 18, blood pressure was 119/78. HEENT: Head is normocephalic. No lesions. Ears: TMs clear. Eyes: Pupils equal, round, reactive to light. His extraocular movements are intact. His nasal cavity, oral cavity and oropharynx clear. NECK: Supple. There is no adenopathy. HEART: Had a regular rate. LUNGS: Clear. HISTORY AND PHYSICAL [id number] JUNIOR MCKEON ABDOMEN: Soft, bowel sounds are positive. EXTREMITIES: The patient has 2+ dorsalis pedis and posterior tibial pulses. LABORATORY DATA: Chest x-ray today shows emphysematous changes in the lungs. No acute cardiopulmonary abnormalities were seen. The patient had an EKG showed normal sinus rhythm, rate of 82, first-degree AV block, left bundle branch block. ABG: He had a pH 7.4, pCO2 is 50, pO2 is 104, bicarbonate was 31. Sodium 143, potassium 4.4, chloride 105, CO2 is 31.9, BUN is 18, creatinine 1.2. Liver functions normal. Troponin elevated at 0.486. ProBNP is 1475. White count 11.7, hemoglobin 11.8, hematocrit 36.9, platelets are 184. ASSESSMENT: Substernal chest pain, history of arteriosclerotic heart disease, recent stenting, hyperlipidemia, hypertension, peripheral vascular disease, chronic low back pain, chronic obstructive pulmonary disease. PLAN: The patient will be admitted. Cardiology consultation will be obtained. He will have serial cardiac enzymes. Continue to follow. TRANSINT:[id number] Voice Confirmation ID: [id number] DOCUMENT ID: [id number] ROBI PITTS MD CC: [id number] DICTATION DATE: 11/10/17 09 BANDER HAND: 11/10/17 0959 ADM IN [id number] [place] [address]
--- NOTE | ~2017-11-09 | CN ---
PATIENT NAME:JUNIOR GONZALEZ MEDICAL RECORD: [id number] : 36 LOCATION:. D.2126 ADMIT DATE: 11/09/17 ACCOUNT: [id number] CONSULTING PHYSICIAN: WALI ABRAMS MD REFERRING PHYSICIAN: ROBI PITTS MD DATE OF CONSULTATION: 11/10/2017 DIAGNOSES: 1. Chest pain. 2. Coronary artery disease. 3. Previous multivessel PTCA and stent. 4. Hypertension. 5. Hyperlipidemia. HISTORY OF PRESENT ILLNESS: Mr. Gonzalez presents with ongoing chest discomfort. He has a history of coronary artery disease. His last PTCA and stent was earlier last week. There is nothing else that needs fixing from a cardiac standpoint. He continues to have the chest pain, but it is very atypical. The chest pain is there only when he lies down, it is better when he gets up. He has no EKG changes. Troponin is normal. He as well has had a cough that has been productive of yellowish sputum. REVIEW OF SYSTEMS: The patient reports easy bruising but reports no swollen glands. The patient reports no fever, no night sweats, no significant weight gain, no significant weight loss. No significant exercise tolerance. The patient reports no dry eyes, no irritation, no vision change. Patient reports no difficulty hearing and no ear pain. Patient reports no frequent nose bleeds or nose and sinus problems. Patient reports on arm pain on exertion. No shortness of breath while lying down. No history of heart murmur. Patient reports no cough, no wheezing or coughing up blood. Patient reports no abdominal pain, no vomiting. Normal appetite. No diarrhea and not vomiting blood. No nausea and no constipation. Patient reports no incontinence. No difficulty urinating. No hematuria. No increased frequency. Patient reports no muscle aches. No weakness, no arthralgias, no back pain. No swelling of the extremities. Patient reports no abnormal mole, no jaundice, no rashes. Reports no loss of consciousness. No weakness and no numbness. No seizures, dizziness, or headaches. The patient reports no depression, no sleep disturbance, feeling safe in a relationship and no alcohol abuse. Patient reports on fatigue. Reports no runny nose or sinus pressure. No itching, no hives, and no frequent sneezing. PHYSICAL EXAMINATION: GENERAL APPEARANCE: Well-nourished, well-developed, appears stated age. Level of distress, comfortable. PSYCHIATRIC: Mental status, alert, normal affect. Orientation, oriented to time, place and person. EYES: Lids and conjunctiva, noninjected. No discharge, no pallor. ENT: Lips, teeth, gums, normal dentition. Oropharynx, no cyanosis, no pallor. NECK: Carotid arteries, bilateral normal upstroke, no bruits, no thrills. JUGULAR VEINS: No jugular venous pressure or distention. CERVICAL LYMPH NODES: Nontender, nonenlarged. THYROID: Not enlarged. Nontender. No nodules. LUNGS: Respiratory effort, unlabored. CHEST: Normal curvature. No thoracic deformity. No chest wall tenderness. Percussion, resonant. Auscultation, clear. No wheezes, no rales, no rhonchi. CONSULT REPORT [id number] JUNIOR GONZALEZ CARDIOVASCULAR: Precordial exam, nondisplaced. No heaves or pericardial thrills. Rate and rhythm, regular. Heart sounds, normal S1, normal S2. No S3, no gallop, no rub. Systolic murmur, not heard. Diastolic murmur, not heard. EXTREMITIES: No cyanosis, no edema. Peripheral pulses, full and equal in all extremities, except as noted. No bruits appreciated. ABDOMEN: Soft, nondistended. Normal aorta. No bruit. Nontender. No masses. Liver, nontender, no hepatomegaly. Spleen, nontender, no splenomegaly. MUSCULOSKELETAL: No joint tenderness. No joint swelling. No erythema. NEUROLOGICAL: Normal gait, normal strength, normal tone. SKIN: Warm and dry. OVERALL IMPRESSION: Chest pain. We have increased his Imdur to 60 mg b.i.d. from 30 mg once a day. Would keep the increased Imdur from a cardiac standpoint. No other workup or treatment is necessary. TRANSINT:[id number] Voice Confirmation ID: [id number] DOCUMENT ID: [id number] WALI ABRAMS MD at 1823 CC: [id number] DICTATION DATE: 11/10/17 1010 SUPERVISOR CONTINGENTS: 11/10/17 1046 DIS IN 11/12/17 [id number] [place] [address]
[~2017-11-09 16:38] MED LIST changes: -ISOSORBIDE MONO60 M1 PO
[2017-11-09 17:14] LABS: BASOPHILS 0.2 % (0-2); EOSINOPHILS 0.3 % (0-7); HEMATOCRIT 36.9 % (42.0-54.0); HEMOGLOBIN 11.8 g/dL (13.5-17.5); IMMATURE GRANULOCYTES 0.2 % (0-5); LYMPHOCYTES 12.4 % (15-50); MCH 29.5 pg (26.0-34.0); MCV 92.3 fL (80.0-100.0); MEAN PLATELET VOLUME 10.5 fL (7.4-10.4); NEUTROPHILS 79.9 % (40-80); PLATELET COUNT 185 10x3/uL (130-400); RDW 13.9 % (11.5-14.5); WBC 11.7 10x3/uL (4.8-10.8)
[2017-11-09 17:43] LABS: ALBUMIN 3.3 g/dL (3.4-5.0); ALKALINE PHOSPHATASE 75 U/L (46-116); ALT (SGPT) 23 U/L (10-68); BILIRUBIN - TOTAL 0.26 mg/dL (0.2-1.3); CALC OSMOLALITY 285 mosm/kg (275-300); CHLORIDE - SERUM 105 mmol/L (98-107); CKMB 3.9 U/L (0.0-3.6); CREATINE KINASE 79 UL (21-232); CREATININE - SERUM 1.2 mg/dL (0.6-1.3); GLUCOSE 75 mg/dL (74-106); POTASSIUM - SERUM 4.4 mmol/L (3.5-5.1); PRO BNP 1475 pg/mL (0-450); PROTEIN - SERUM 6.7 g/dL (6.4-8.2); SODIUM 143 mmol/L (136-145); UREA NITROGEN 18 mg/dL (7-18); eGFR NON AFRICAN AMERICAN 62 mL/min (90-120)
[2017-11-09 17:50] LABS: CARBON DIOXIDE 31.9 mmol/L (21.0-32.0)
[2017-11-09 17:52] LABS: TROPONIN-I 0.486 ng/mL (0.000-0.060)
[2017-11-09 21:40] VITALS: BP 144/72
[2017-11-09 22:08] VITALS: BP 144/72; Ht 177.8 cm; Wt 93.3 kg
[2017-11-09 23:21] LABS: CKMB 3.1 U/L (0.0-3.6); CREATINE KINASE 89 UL (21-232)
[2017-11-09 23:34] LABS: TROPONIN-I 0.454 ng/mL (0.000-0.060)
[2017-11-10 02:05] LABS: CKMB 2.7 U/L (0.0-3.6); CREATINE KINASE 87 UL (21-232)
[2017-11-10 04:00] VITALS: BP 168/91
[2017-11-10 04:45] LABS: BASOPHILS 0.3 % (0-2); EOSINOPHILS 2.6 % (0-7); HEMATOCRIT 33.9 % (42.0-54.0); HEMOGLOBIN 10.8 g/dL (13.5-17.5); IMMATURE GRANULOCYTES 0.1 % (0-5); LYMPHOCYTES 20.3 % (15-50); MCH 29.3 pg (26.0-34.0); MCHC 31.9 g/dL (31.0-37.0); MCV 92.1 fL (80.0-100.0); MEAN PLATELET VOLUME 10.6 fL (7.4-10.4); MONOCYTES 11.7 % (2-11); PLATELET COUNT 165 10x3/uL (130-400); RBC 3.68 10x6/uL (4.20-6.10)
[2017-11-10 04:57] LABS: WBC 7.8 10x3/uL (4.8-10.8)
[2017-11-10 05:02] LABS: ALBUMIN 2.9 g/dL (3.4-5.0); BILIRUBIN - TOTAL 0.25 mg/dL (0.2-1.3); CALCIUM 8.3 mg/dL (8.5-10.1); CARBON DIOXIDE 34.5 mmol/L (21.0-32.0); CREATININE - SERUM 1.1 mg/dL (0.6-1.3); PROTEIN - SERUM 5.8 g/dL (6.4-8.2)
[2017-11-10 05:03] LABS: ANION GAP 8.2 mmol/L (8-16); POTASSIUM - SERUM 3.7 mmol/L (3.5-5.1)
[2017-11-10 07:43] LABS: CKMB 2.6 U/L (0.0-3.6); CREATINE KINASE 95 UL (21-232)
[2017-11-10 07:45] LABS: TROPONIN-I 0.569 ng/mL (0.000-0.060)
[2017-11-10 21:20] VITALS: BP 132/62
[2017-11-11 05:55] LABS: BASOPHILS 0.2 % (0-2); EOSINOPHILS 3.6 % (0-7); HEMATOCRIT 34.2 % (42.0-54.0); HEMOGLOBIN 10.8 g/dL (13.5-17.5); IMMATURE GRANULOCYTES 0.2 % (0-5); LYMPHOCYTES 21.5 % (15-50); MCH 29.3 pg (26.0-34.0); MCHC 31.6 g/dL (31.0-37.0); MCV 92.9 fL (80.0-100.0); MEAN PLATELET VOLUME 10.5 fL (7.4-10.4); MONOCYTES 10.9 % (2-11); NEUTROPHILS 63.6 % (40-80); PLATELET COUNT 172 10x3/uL (130-400); RBC 3.68 10x6/uL (4.20-6.10); WBC 8.3 10x3/uL (4.8-10.8)
[2017-11-11 05:59] VITALS: BP 118/61
[2017-11-11 07:09] LABS: ANION GAP 10.1 mmol/L (8-16); CALCIUM 8.6 mg/dL (8.5-10.1); CARBON DIOXIDE 32.5 mmol/L (21.0-32.0); CREATININE - SERUM 1.1 mg/dL (0.6-1.3); POTASSIUM - SERUM 4.6 mmol/L (3.5-5.1)
[2017-11-11 08:39] VITALS: BP 148/72
[2017-11-11 17:41] VITALS: BP 118/61
[2017-11-11 21:04] VITALS: BP 144/60
[2017-11-12 04:59] LABS: BASOPHILS 0.3 % (0-2); EOSINOPHILS 2.9 % (0-7); HEMATOCRIT 33.4 % (42.0-54.0); HEMOGLOBIN 10.5 g/dL (13.5-17.5); IMMATURE GRANULOCYTES 0.1 % (0-5); LYMPHOCYTES 22.6 % (15-50); MCH 29.3 pg (26.0-34.0); MCHC 31.4 g/dL (31.0-37.0); MCV 93.3 fL (80.0-100.0); MEAN PLATELET VOLUME 10.7 fL (7.4-10.4); MONOCYTES 11.8 % (2-11); NEUTROPHILS 62.3 % (40-80); PLATELET COUNT 183 10x3/uL (130-400); RBC 3.58 10x6/uL (4.20-6.10); RDW 13.9 % (11.5-14.5); WBC 7.4 10x3/uL (4.8-10.8)
[2017-11-12 05:11] LABS: ANION GAP 7.4 mmol/L (8-16); CALCIUM 8.4 mg/dL (8.5-10.1); CARBON DIOXIDE 34.6 mmol/L (21.0-32.0); CREATININE - SERUM 1.1 mg/dL (0.6-1.3)
[2017-11-12 06:12] VITALS: BP 155/74
[2017-11-12] MEDS ORDERED: ISOSORBIDE MONO60 M1 PO (06:35)
[2017-11-12 07:55] VITALS: BP 113/60
== END 2017-11-12 11:19 | disposition home or self-care (01) | DRG 313 ==
LOC: D.ER 16:38 → D.M2 19:27 → D.EDHOLD 19:27 → D.M2 20:00
PROVIDERS: Family Medicine
DX: R07.9 Chest pain, unspecified (principal); I25.10 Atherosclerotic heart disease of native coronary artery without angina pectoris; I10 Essential (primary) hypertension; E78.5 Hyperlipidemia, unspecified; J44.9 Chronic obstructive pulmonary disease, unspecified; I73.9 Peripheral vascular disease, unspecified; N40.0 Benign prostatic hyperplasia without lower urinary tract symptoms; Z95.5 Presence of coronary angioplasty implant and graft; I44.0 Atrioventricular block, first degree

== ENCOUNTER → 2018-02-14 08:49 | Outpatient (CLI) | payer MEDICARE, OTHER ==
[2017-11-09 22:08] VITALS: BMI 29.5
[~2018-02-14 08:49] MED LIST changes: +ISOSORBIDE MONO60 M1 PO
== END | disposition home or self-care (01) ==
LOC: D.CT 08:49 → D.RAD 09:00 → D.CT 10:00
DX: J44.9 Chronic obstructive pulmonary disease, unspecified (principal); K21.9 Gastro-esophageal reflux disease without esophagitis; R05 Cough

== ENCOUNTER → 2018-03-11 11:50 | Outpatient (CLI) | payer MEDICARE, OTHER ==
[2017-11-09 22:08] VITALS: BMI 29.5
[2018-03-12 07:27] LABS: IMMUNOGLOBULIN A 209 mg/dL (61-437); IMMUNOGLOBULIN M 72 mg/dL (15-143)
[2018-03-13 17:10] LABS: IGG SUBCLASS 1 294 mg/dL (248-810); IGG SUBCLASS 2 278 mg/dL (130-555); IGG SUBCLASS 3 42 mg/dL (15-102); IGG SUBCLASS 4 74 mg/dL (2-96); IMMUNOGLOBULIN G 627 mg/dL (700-1600)
[2018-03-14 03:10] LABS: IMMUNOGLOBULIN E 169 IU/mL (0-100)
== END | disposition home or self-care (01) ==
LOC: D.RAD 11:50
PROVIDERS: Internal Medicine Pulmonary Disease
DX: R05 Cough (principal); J42 Unspecified chronic bronchitis; K21.9 Gastro-esophageal reflux disease without esophagitis

== ENCOUNTER → 2018-04-02 10:41 | Outpatient (CLI) | payer MEDICARE, OTHER ==
[2017-11-09 22:08] VITALS: BMI 29.5
[~2018-04-02 10:41] MED LIST changes: +FERROUS SULFAT325 MG PO
--- NOTE | 2018-04-08 11:45 | ST ---
PATIENT:JUNIOR MCKEON MEDICAL RECORD: [id number] SEX: M LOCATION:[facility] ORDER #: ADMISSION DATE: 04/02/18 AGE OF PATIENT: 77 REFERRING PHYSICIAN: INTERPRETING PHYSICIAN: WALI ABRAMS MD DATE OF SERVICE: 04/02/2018 Nuclear stress test. INDICATION: Angina, coronary artery disease, and shortness of breath. He was exercised on standard Lexiscan protocol with 32 mCi injected at peak stress, 11 mCi were used previously for rest images. FINDINGS: Gated SPECT reveals a depressed ejection fraction at 40% with global hypokinesis throughout all segments. SPECT imaging Cardiolite was used as myocardial perfusion agent. There is reversibility inferiorly. This includes the basal, mid apical, and inferior segments as well as an inferolateral and mid lateral segments. The degree of reversibility is moderate to severe. The amount of myocardium involved is large. OVERALL IMPRESSION: 1. This is an abnormal nuclear stress test, reversible ischemia inferiorly and laterally. 2. Gated SPECT reveals mildly depressed ejection fraction of 40% in this patient with ongoing symptomatology, the current scan does suggest the presence of hemodynamically significant coronary artery disease. We will proceed with coronary angiography as followup study. TRANSINT:[id number] Voice Confirmation ID: [id number] DOCUMENT ID: [id number] WALI ABRAMS MD at 1145 CC: [id number] DICTATION DATE: 04/03/18 162 SEWER HEAD: 04/03/181950 DEP CLI 04/02/18 [id number] [place] [address]
== END | disposition home or self-care (01) ==
LOC: D.HCCARDIO 10:41
DX: I20.9 Angina pectoris, unspecified (principal)

== ENCOUNTER 2018-04-10 08:35 | Outpatient (CLI) | payer MEDICARE, OTHER ==
[~2018-04-10] VITALS: Ht 177.8 cm; Wt 97.3 kg
--- NOTE | ~2018-04-10 | HEMODYNAMI ---
PATIENT:JUNIOR MCKEON MEDICAL RECORD: [id number] : 36 LOCATION:[facility] ADMISSION DATE: 04/10/18 Generatedon:04/10/201810:29 Patient name: JUNIOR MCKEON Patient #: [id number] SSN: [id number] : 1940 Date of study: 04/10/2018 Page: Of Hemodynamic Procedure Report Patient Data Patient Demographics Procedure consent was obtained First Name: JUNIOR Gender: Male Last Name: MIKE : 1940 Middle Initial: D Age: 77 year(s) Patient #: [id number] Race: SSN: [id number] Additional ID: [id number] Contact details [address]: [address] [place] [address] [place] State: [place] City: [place] Zip code: [address] Past Medical History History of disease Date Diagnosis Comments CAD Peripheral vascular disease Allergies Allergen Reaction Date Comments Reported Other allergy 04/06/2017 hydrocodone Other allergy 05/07/2017 none Other allergy 11/07/2017 Other allergy 04/10/2018 Admission Admission Data Admission Date: 04/10/2018 Admission Time: 8:35 Procedure Procedure Types Cath Procedure Diagnostic Procedure C [facility] w/Coronaries Sedation Charges Moderate Sedation up to 15 minutes PCI Procedure PTCA PTCA Initial Procedure Description Procedure Date Procedure Date: 04/10/2018 Procedure Start Time: 10:08 Procedure End Time: 10:29 Procedure Staff Name Function Jason Jules MD Performing Physician Diana Marino RT Monitor Jackelin Altamirano RT Scrub Ana Olivares RT Scrub Jed Muniz RN Nurse Procedure Data Cath Procedure Fluoroscopy Diagnostic fluoroscopy Total fluoroscopy Time: 7.8 time: 7.8 min min Diagnostic fluoroscopy Total fluoroscopy dose: 589 dose: 589 mGy mGy Contrast Material Contrast Material Type Amount (ml) Isovue 300 0 Entry Location Entry Primary Successful Side Size Upsize Upsize Entry Closure Succes sful Closure Location (Fr) 1 (Fr) 2 (Fr) Remarks Device Remarks Femoral Left 5 Fr 6 Fr Exoseal artery Short Estimated blood loss: 10 ml Diagnostic catheters Device Type Used For End Catheter Placement MULTIPACK Pigtail 5 Fr Ventriculography catheter MULTIPACK JL 4.0 5Fr Procedure catheter MULTIPACK 3DRC 5Fr Procedure catheter Procedure Complications No complications Procedure Medications Medication Administration Route Dosage 0.9% NaCl I.V. 100 ml/hr Oxygen etCO2 Nasal cannula 3 l/min Heparin Flush Bag added to field 2 bags (1000units/500ml NS) Lidocaine 2% added to field 20 Versed I.V. 2 mg Fentanyl I.V. 100 mcg Heparin Bolus I.V. 4000 units Hemodynamics Rest Heart Rate: 72 (bpm) Pressure Samples Time Site Value (mmHg) Purpose Heart Use Rate(bpm) 10:09 LV 125/-40,14 Snapshot 68 Snapshots Pre Cath Intra NCS Post Cath Vital Signs Time Heart Resp SPO2 etCO2 NIBP (mmHg) Rhythm Pain Sedation Rate (ipm) (%) (mmHg) Status Level (bpm) 9:42:10 70 15 99 35.1 172/91(140) NSR 0 (11) 10(A) , No pain 9:46:39 69 11 98 2.9 146/73(120) NSR 0 (11) 10(A) , No pain 9:51:11 67 13 96 27.6 133/67(98) NSR 0 (11) 10(A) , No pain 9:56:27 66 13 96 32.8 127/67(101) NSR 0 (11) 10(A) , No pain 10:00:49 67 13 95 43.3 121/71(94) NSR 0 (11) 10(A) , No pain 10:05:09 67 12 94 43.3 131/72(110) NSR 0 (11) 9(A) , No pain 10:10:24 67 12 93 37.3 124/73(95) NSR 0 (11) 9(A) , No pain 10:16:04 67 14 94 44.1 149/75(126) NSR 0 (11) 10(A) , No pain 10:20:24 67 13 93 40.3 119/73(103) NSR 0 (11) 10(A) , No pain 10:24:38 68 14 93 39.5 139/85(117) NSR 0 (11) 10(A) , No pain Medications Time Medication Route Dose Verified Delivered Reason No jean-claude Effectiveness by by 9:41:49 0.9% NaCl I.V. 100ml/hr Jed Jed Per physician Flavio Muniz RN RN 9:42:02 Oxygen etCO2 3 l/min Jed Jed for low 02 sats Nasal Flavio Muniz cannula RN RN 9:42:14 Heparin Flush added 2 bags Jed Jed used for Bag to Flavio Muniz procedure (1000units/500ml field RN RN NS) 9:42:25 Lidocaine 2% added 20ml Jed Jed for local to vial Flavio Muniz anesthetic field RN RN 10:07:46 Versed I.V. 2 mg Jed Jed for sedation Flavio Muniz RN RN 10:07:56 Fentanyl I.V. 100 mcg Jed Jde for sedation Flavio Muniz RN RN 10:15:36 Heparin Bolus I.V. 4000 Jed Jed for units Flavio Muniz anticoagulation RN associate chemist Log Time Note 9:31:09 Diagnostic Cath Status : Elective 9:31:41 Jed Muniz RN sent for patient. Start room use. 9:31:42 Time tracking: Regular hours (M-F 7:00 - 5:00) 9:31:46 Plan of Care:Hemodynamics will remain stable., Cardiac rhythm will remain stable., Comfort level will be maintained., Respiratory function will remain adequate., Patient/ family verbilizes understanding of procedure., Procedure tolerated without complication., Recovers from procedure without complications.. 9:32:54 Patient received from Pre/Post Procedure Room to CCL 3 Alert and oriented. Tansferred to table in Supine position. 9:32:55 Warm blankets applied, and erika hugger turned on for patient comfort. 9:32:55 Correct patient and procedure confirmed by team. 9:32:57 Signed procedure consent form obtained from patient. 9:33:00 ECG and BP/O2 sat monitors applied to patient. 9:40:04 Vital chart was started 9:40:47 Baseline sample Acquired. 9:40:54 Rhythm: sinus rhythm 9:40:56 Full Disclosure recording started 9:41:07 H&P Date Dictated: 04/10/2018 Within 30 days and on chart., H&P Addendum completed by physician on day of procedure. (MUST COMPLETE FOR ALL OUTPATIENTS). 9:41:10 Pre-procedure instructions explained to patient. 9:41:11 Family in waiting room. 9:41:13 Patient NPO since Midnight. 9:41:49 0.9% NaCl 100ml/hr I.V. was administered by Jed Muniz RN; Per physician; 9:42:02 Oxygen 3 l/min etCO2 Nasal cannula was administered by Jed Muniz RN; for low 02 sats; 9:42:13 Patient allergic to Other allergy 9:42:14 Heparin Flush Bag (1000units/500ml NS) 2 bags added to field was administered by Jed Muniz RN; used for procedure; 9:42:21 Is the patient allergic to Iodine/contrast media? No. 9:42:25 Lidocaine 2% 20ml vial added to field was administered by Jed Muniz RN; for local anesthetic; 9:42:36 Was the patient premedicated? Yes 9:42:37 Is patient on blood thinner?Yes 9:42:41 ACC The patient was administered the following blood thiners within the last 24 hours: ACCPlavix 9:42:43 Patient diabetic? Yes. 9:42:44 If diabetic: On Metformin? Yes 9:43:29 If on Metformin: Last Dose? 04/09/2018 9:44:34 Snore? Yes 9:44:36 Sleep apnea? Yes 9:45:01 Patient pain scale 0/10 ?. 9:45:07 IV patent on arrival in left forearm with 0.9% NaCl at [facility]. 9:45:15 Lab results completed and on chart. 9:56:48 Left groin area was prepped with chlora-prep and draped in sterile fashion 9:56:49 Alarms reviewed by R. N. 9:56:49 Sharps counted by scrub and verified by R.N. 9:57:54 Zero performed for pressure channel P1 9:58:10 Physician paged 10:06:50 Physician arrived 10:07:02 --------ALL STOP TIME OUT------ 10:07:05 Final Timeout: patient, procedure, and site verified with staff and physician. All members of the team are in agreement. 10:07:09 Left groin site verified by team. 10:07:46 Versed 2 mg I.V. was administered by Jed Muniz RN; for sedation; 10:07:56 Fentanyl 100 mcg I.V. was administered by Jed Muniz RN; for sedation; 10:07:58 Fire Safety Assessment: A--An alcohol-based skin anteseptic being used preoperatively., C--Open oxygen or nitrous oxide is being used., D--An ESU, laser, or fiber-optic light is being used. 10:08:05 Physical assessment completed. ASA score P 2 - A patient with mild systemic disease as per Jason Jules MD. 10:08:09 Sedation plan: IV Moderate Sedation Medication:Versed, Fentanyl 10:08:15 Use device set Femoral Dx 10:08:18 Procedure started. 10:08:29 Local anesthetic to left femerol artery with Lidocaine 2% by Jason Jules MD.INITIAL ACCESS ONLY 10:08:40 A 5 Fr sheath was inserted into the Left Femoral artery 10:08:42 ACIST Syringe (29718) opened to sterile field. 10:08:43 Bag Decanter (2002S) opened to sterile field. 10:08:44 Medline Cath Pack ([id number]) opened to sterile field. 10:08:44 DIAGNOSTIC WIRE .035 260cm J wire (438548) opened to sterile field. 10:08:56 ACIST Hand Control (62599) opened to sterile field. 10:08:56 ACIST Manifold (72286) opened to sterile field. 10:08:57 DIAGNOSTIC Multipack 5Fr catheter set (OJ3823) opened to sterile field. 10:08:58 Tegaderm 4 x 4 (1626W) opened to sterile field. 10:08:59 SHEATH 5FR [place] (FYH682) opened to sterile field. 10:09:12 A MULTIPACK Pigtail 5 Fr catheter was advanced over the wire and used for Ventriculography. 10:09:32 EF : 30 % 10:09:35 Catheter removed. 10:09:42 A MULTIPACK JL 4.0 5Fr catheter was advanced over the wire and used for Procedure. 10:09:45 LCA angiography performed. 10:11:02 Catheter removed. 10:11:24 A MULTIPACK 3DRC 5Fr catheter was advanced over the wire and used for Procedure. 10:11:29 RCA angiography performed. 10:12:52 Catheter removed. 10:13:45 SHEATH 6FR [place] (RQX683) opened to sterile field. 10:13:52 Proceeding to intervention. 10:14:01 Sheath upsized to a 6 Fr Short. 10:14:12 6 Fr XBLAD3.5 guide catheter was inserted over the wire 10:14:17 choice pt wire advanced. 10:14:24 GUIDE 6FR XBLAD 3.5 catheter ([id number]) opened to sterile field. 10:14:25 CHOICE PT Extra Support 182cm wire ([id number]) opened to sterile field. 10:14:26 INFLATOR Merit BasixCompak (ZE8583) opened to sterile field. 10:15:36 Heparin Bolus 4000 units I.V. was administered by Jed Muniz RN; for anticoagulation; 10:18:55 unable to cross wire across lesion. 10:19:23 FIELDER XT 190cm guidewire ([id number]) opened to sterile field. 10:19:45 Fielder wire advanced. 10:24:18 Inflate balloon Inflation number: 1 A EUPHORA 1.5 x 12 balloon ([id number]) was prepped and advanced across the Prox CX, then inflated to 11 IMAN for 0:22 (min:sec). 10:24:41 EXOSEAL 6Fr (EX600) opened to sterile field. 10:25:04 Balloon removed over the wire. 10:25:05 Wire removed. 10:25:06 Guide catheter removed. 10:25:15 Sheath removed intact; hemostasis achieved with Exoseal to the Left Femoral artery. 10:25:18 Procedure ended.(Physican Out) 10:25:38 Fluoroscopy time 07.80 minutes. 10:25:44 Flurop Dose total: 589 10:25:44 Fluoroscopy dose: 589 mGy 10:25:48 Contrast amount:Isovue 300 0ml. 10:25:51 Sharps counted by scrub and verified by R.N. 10:25:53 Insertion/operative site no bleeding no hematoma. 10:26:00 Post left femerol artery:stable 10:26:16 Post Procedure Pulses reassessed and unchanged 10:26:29 Post-procedure physical assessment completed. ASA score P 2 - A patient with mild systemic disease as per Diana Marino RT(R). 10:26:35 Post procedure rhythm: sinus rhythm 10:26:39 Estimated blood loss: 10 ml 10:26:42 Post procedure instruction explained to patient.Patient verbalizes understanding. 10:28:12 Procedure type changed to Cath procedure, Diagnostic procedure, LHC, LHC w/Coronaries, Sedation Charges, Moderate Sedation up to 15 minutes, PCI procedure, PTCA, PTCA Initial 10:28:16 Procedure and supply charges have been captured, reviewed, submitted and are correct. 10:28:43 Procedure Complication : No complications 10:28:47 Vital chart was stopped 10:28:53 See physician's report for complete and final results. 10:28:56 Report given to Pre/Post Procedure Room. 10:29:06 Patient transfered to Pre/Post Procedure Room with Stretcher. 10:29:10 Procedure ended. 10:29:10 Full Disclosure recording stopped 10:29:13 End room use (Document Last) Intervention Summary Intervention Notes Time ActionType Lesion and Equipment Action# Pressure Duration Attributes Used 10:24:18 Inflate Prox CX EUPHORA 1 11 00:22 balloon 1.5 x 12 balloon ([id number]) Device Usage Item Name Manufacture Quantity Catalog Number Hospital Part Current Minim al Lot# / Charge Number Stock Stock Serial# Code ACIST Acist 1 95224 283002 505835 194078 20 Syringe Medical (28614) Systems Inc Bag Microtek 1 132036 58974 481631 5 Decanter Medical Inc. () Medline Medline 1 [id number] 672298 80330 833701 5 Cath Pack ([id number]) DIAGNOSTIC [facility] 1 847088 585460 810619 283678 30 WIRE .035 260cm J wire (822056) ACIST Hand Acist 1 80231 338833 466052 629481 5 Control Medical (93744) Systems Inc ACIST Acist 1 61191 703272 410315 236331 5 Manifold Medical (00531) Systems Inc DIAGNOSTIC Cardinal 1 OV5343 554204 52854 481826 30 Multipack Health 5Fr catheter set (FT4762) Tegaderm 4 3M 1 1626W 025725 200387 875126 5 x 4 (1626W) SHEATH 5FR Terumo 1 OFB766 725955 458968 630740 5 [place] (CCV244) MULTIPACK Cardinal 1 944825 5 Pigtail 5 Health Fr catheter MULTIPACK Cardinal 1 350441 5 JL 4.0 5Fr Health catheter MULTIPACK Cardinal 1 270984 5 3DRC 5Fr Health catheter SHEATH 6FR Terumo 1 NPJ740 910518 660066 533130 40 [place] (QAS788) GUIDE 6FR Cardinal 1 [id number] 229767 783034 081662 10 XBLAD 3.5 Health catheter (43294644) CHOICE PT [place] 1 [id number] 613104 794674 761729 5 Extra Scientific Support 182cm wire ([id number]) INFLATOR Merit 1 MU1540 178575 705331 203235 15 [facility] Medical BasixCompak (FQ7749) FIELDER XT [place] 1 [id number] 215703 07595 627712 5 190cm Vascular guidewire ([id number]) EUPHORA 1.5 Medtronic 1 [id number] 533109 799192 116490 5 [id number] x 12 balloon ([id number]) EXOSEAL 6Fr Cardinal 1 EX600 805828 694928 937130 10 (EX600) Health Signature Audit [place] Stage Time Signature Unsigned Intra-Procedure 04/10/2018 Diana Marino 10:29:51 AM RT(R) Signatures Monitor : Diana Marino Signature : RT Date : Time : [address] [place] [address]
[~2018-04-10 08:35] MED LIST changes: -FERROUS SULFAT325 MG PO
[2018-04-10 09:07] VITALS: BP 153/67; Ht 177.8 cm; Wt 97.3 kg
[2018-04-10 09:29] LABS: BASOPHILS 0.4 % (0-2); EOSINOPHILS 7.4 % (0-7); HEMOGLOBIN 11.4 g/dL (13.5-17.5); IMMATURE GRANULOCYTES 0.3 % (0-5); LYMPHOCYTES 13.9 % (15-50); MCH 28.1 pg (26.0-34.0); MCHC 31.7 g/dL (31.0-37.0); MCV 88.9 fL (80.0-100.0); MEAN PLATELET VOLUME 10.5 fL (7.4-10.4); MONOCYTES 11.3 % (2-11); NEUTROPHILS 66.7 % (40-80); PLATELET COUNT 159 10x3/uL (130-400); RBC 4.05 10x6/uL (4.20-6.10); RDW 17.8 % (11.5-14.5); WBC 7.6 10x3/uL (4.8-10.8)
[2018-04-10 09:31] LABS: CALC OSMOLALITY 285 mosm/kg (275-300); CALCIUM 8.2 mg/dL (8.5-10.1); CARBON DIOXIDE 29.2 mmol/L (21.0-32.0); CHLORIDE - SERUM 105 mmol/L (98-107); POTASSIUM - SERUM 4.1 mmol/L (3.5-5.1); SODIUM 141 mmol/L (136-145); UREA NITROGEN 19 mg/dL (7-18); eGFR NON AFRICAN AMERICAN 76 mL/min (90-120)
[2018-04-10 09:43] LABS: GLUCOSE 147 mg/dL (74-106)
--- NOTE | 2018-04-10 10:55 | NUR ---
3L NC, NO RESP DISTRESS. LEFT GROIN 6F EXOSEAL CDI, NO BLEEDING OR HEMATOMA NOTED. NO C/O PAIN OR NAUSEA. VSS. FAMILY AT BEDSIDE, CALL LIGHT WITHIN REACH.
--- NOTE | 2018-04-10 11:25 | NUR ---
LEFT GROIN 6F EXOSEAL CDI, NO BLEEDING OR HEMATOMA NOTED. 2L NC WITH NO RESP DISTRESS. NO NEEDS VOICED. VSS. WILL CONTINUE TO MONITOR.
--- NOTE | 2018-04-10 11:40 | NUR ---
RESTING QUIETLY WITH EYES CLOSED. LEFT GROIN 6F EXOSEAL CDI, NO BLEEDING OR HEMATOMA NOTED. DENIES ANY NEEDS. VSS. CALL LIGHT WITHIN REACH.
--- NOTE | 2018-04-10 12:10 | NUR ---
CONTINUES TO REST QUIETLY WITH NO C/O. LEFT GROIN 6F EXOSEAL CDI, NO BLEEDING OR HEMATOMA NOTED. DENIES ANY NEEDS. VSS. CALL LIGHT WITHIN REACH.
--- NOTE | 2018-04-10 13:30 | NUR ---
HOB ELEVATED 30 DEGREES. LEFT GROIN 6F EXOSEAL CDI, NO BLEEDING OR HEMATOMA NOTED. SIPPING ON DRINK AND EATING SANDWICH WITH NO C/O NAUSEA. VSS. WILL CONTINUE TO MONITOR.
--- NOTE | 2018-04-10 14:10 | NUR ---
LEFT PIV D/C'D WITH CATHETER INTACT, BAND AID TO SITE. UP TO BEDSIDE TO GET DRESSED.
--- NOTE | 2018-04-10 14:20 | NUR ---
DISCHARGE INSTRUCTIONS GIVEN, VERBALIZED UNDERSTANDING.
--- NOTE | 2018-04-10 14:30 | NUR ---
TAKEN OUT VIA WHEELCHAIR BY CATH FIRE PREVENTION RESEARCH ENGINEER. LEFT FACILITY WITH FAMILY AND ALL PERSONAL BELONGINGS.
[2018-04-16] MEDS ORDERED: FERROUS SULFAT325 MG PO (08:52)
--- NOTE | 2018-04-16 11:18 | OP ---
PATIENT NAME: JUNIOR MCKEON MEDICAL RECORD: [id number] :36 LOCATION:D.CAT ADMISSION DATE: SURGEON: WALI ABRAMS MD DATE OF OPERATION: 04/10/2018 PROCEDURES: 1. PTCA of left circumflex. 2. Left heart catheterization. 3. Selective coronary angiography. 4. Left ventriculogram. INDICATIONS: Angina and coronary artery disease. PROCEDURE IN DETAIL: After informed consent was obtained and after detailed explanation of risks, benefits as well as alternative therapies, the patient elected to proceed with angiogram and angioplasty. The right femoral area was prepped and draped in normal sterile fashion. Right femoral artery was cannulated via modified Seldinger technique with placement of 6-Danish sheath. All catheters exchanged through this sheath. FINDINGS: The left ventriculogram was performed in standard 30-degree GRIGGS view, reveals good cardiac wall motion throughout all segments. Overall ejection fraction estimated 60%. SELECTIVE CORONARY ANGIOGRAPHY: 1. Left main is with no significant angiographic disease. 2. Left anterior descending has mild irregularities, but no flow-limiting stenosis. 3. The left circumflex has previously placed stent through the circumflex into the first obtuse marginal. This is widely patent; however, the terminal circumflex takes off in the stented area. This is 95% stenosed. 4. Right coronary has mild irregularities, but no flow-limiting stenosis. Previously placed stents are widely patent. PTCA OF THE LEFT CIRCUMFLEX: We were able to get a 1.5 balloon into this lesion, but nothing else would cross this area. We did do multiple inflations to 17 atmospheres with a 1.5 balloon. OVERALL IMPRESSION: Successful PTCA for a side branch that takes off in a previously stented area with 95% stenosis. TRANSINT:[id number] Voice Confirmation ID: [id number] DOCUMENT ID: [id number] WALI ABRAMS MD at 1118 CC: [id number] DICTATION DATE: 04/10/18 1030 ROTARY ENVELOPE MACHINE OPERATOR: 04/10/18 1051 DEP CLI 04/10/18 [facility] [address] [id number]
== END 2018-04-10 14:30 | disposition home or self-care (01) ==
LOC: D.CATH 08:35
PROVIDERS: Internal Medicine Interventional Cardiology
DX: I25.119 Atherosclerotic heart disease of native coronary artery with unspecified angina pectoris (principal); Z01.812 Encounter for preprocedural laboratory examination

== ENCOUNTER → 2018-04-16 08:38 | Outpatient (CLI) | payer MEDICARE, OTHER ==
[~2018-04-16] VITALS: Ht 177.8 cm; Wt 96.8 kg
[~2018-04-16 08:38] MED LIST changes: +FERROUS SULFAT325 MG PO
[2018-04-16 08:46] VITALS: Ht 177.8 cm; Wt 96.8 kg
[2018-04-16 09:02] LABS: BASOPHILS 0.5 % (0-2); EOSINOPHILS 10.3 % (0-7); HEMATOCRIT 40.6 % (42.0-54.0); HEMOGLOBIN 12.7 g/dL (13.5-17.5); IMMATURE GRANULOCYTES 0.6 % (0-5); LYMPHOCYTES 23.1 % (15-50); MCH 28.2 pg (26.0-34.0); MCHC 31.3 g/dL (31.0-37.0); MCV 90.2 fL (80.0-100.0); MEAN PLATELET VOLUME 10.4 fL (7.4-10.4); NEUTROPHILS 55.5 % (40-80); RDW 17.9 % (11.5-14.5); WBC 6.4 10x3/uL (4.8-10.8)
[2018-04-16 09:03] LABS: PLATELET COUNT 197 10x3/uL (130-400)
[2018-04-16 09:19] LABS: APTT 26.2 SECONDS (22.8-39.4); INR 0.98 (0.85-1.17); PROTIME 12.5 SECONDS (11.6-15.0)
[2018-04-16 09:23] LABS: ALBUMIN 3.2 g/dL (3.4-5.0); ALKALINE PHOSPHATASE 119 U/L (46-116); ALT (SGPT) 26 U/L (10-68); BILIRUBIN - TOTAL 0.25 mg/dL (0.2-1.3); CALC OSMOLALITY 288 mosm/kg (275-300); CALCIUM 9.3 mg/dL (8.5-10.1); CARBON DIOXIDE 28.7 mmol/L (21.0-32.0); CHLORIDE - SERUM 105 mmol/L (98-107); GLUCOSE 149 mg/dL (74-106); POTASSIUM - SERUM 4.3 mmol/L (3.5-5.1); PROTEIN - SERUM 6.8 g/dL (6.4-8.2); SODIUM 143 mmol/L (136-145); UREA NITROGEN 14 mg/dL (7-18); eGFR NON AFRICAN AMERICAN 76 mL/min (90-120)
[2018-04-16 09:34] LABS: CKMB 3.8 U/L (0.0-3.6); CREATINE KINASE 174 UL (21-232); MAGNESIUM - SERUM 1.8 mg/dL (1.8-2.4); TROPONIN-I 0.034 ng/mL (0.000-0.060)
[2018-04-16 11:15] VITALS: BP 158/70
--- NOTE | 2018-04-16 11:19 | CN ---
PATIENT NAME:JUNIOR GONZALEZ MEDICAL RECORD: [id number] : 36 LOCATION:[facility] AD[facility] DATE: ACCOUNT: [id number] CONSULTING PHYSICIAN: WALI ABRAMS MD REFERRING PHYSICIAN: WALI ABRAMS MD DATE OF CONSULTATION: 04/16/2018 DIAGNOSES: 1. Angina. 2. Out of control hypertension. 3. Coronary artery disease. 4. Hyperlipidemia. HISTORY OF PRESENT ILLNESS: Mr. Gonzalez presents with anginal symptomatology. His blood pressure is in the 200 systolic range. His heart rate is controlled with chronic atrial fibrillation, on metoprolol 25 every day. He was previously on amlodipine 5 mg, losartan 50 mg, and Imdur 60 mg as well. PHYSICAL EXAMINATION: GENERAL APPEARANCE: Well-nourished, well-developed, appears stated age. Level of distress, comfortable. PSYCHIATRIC: Mental status, alert, normal affect. Orientation, oriented to time, place and person. EYES: Lids and conjunctiva, noninjected. No discharge, no pallor. ENT: Lips, teeth, gums, normal dentition. Oropharynx, no cyanosis, no pallor. NECK: Carotid arteries, bilateral normal upstroke, no bruits, no thrills. JUGULAR VEINS: No jugular venous pressure or distention. CERVICAL LYMPH NODES: Nontender, nonenlarged. THYROID: Not enlarged. Nontender. No nodules. LUNGS: Respiratory effort, unlabored. CHEST: Normal curvature. No thoracic deformity. No chest wall tenderness. Percussion, resonant. Auscultation, clear. No wheezes, no rales, no rhonchi. CARDIOVASCULAR: Precordial exam, nondisplaced. No heaves or pericardial thrills. Rate and rhythm, regular. Heart sounds, normal S1, normal S2. No S3, no gallop, no rub. Systolic murmur, not heard. Diastolic murmur, not heard. EXTREMITIES: No cyanosis, no edema. Peripheral pulses, full and equal in all extremities, except as noted. No bruits appreciated. ABDOMEN: Soft, nondistended. Normal aorta. No bruit. Nontender. No masses. Liver, nontender, no hepatomegaly. Spleen, nontender, no splenomegaly. MUSCULOSKELETAL: No joint tenderness. No joint swelling. No erythema. NEUROLOGICAL: Normal gait, normal strength, normal tone. SKIN: Warm and dry. OVERALL IMPRESSION: Out of control hypertension. At this time, he has no ST-T changes on his EKG. We just did cardiac catheterization last week. He has a small left circumflex branch that could not be crossed with any balloon. We have tried this in the past. This is the etiology of his angina. His major epicardial vessels were open. His previous stents were open. At this time, center medical management with control of the hypertension. We will discontinue his amlodipine and put him on Procardia-XL 60. Hopefully, this will do a better job controlling his blood pressure and chest pain. TRANSINT:[id number] Voice Confirmation ID: [id number] DOCUMENT ID: [id number] CONSULT REPORT [id number] JUNIOR GONZALEZ JEFFREY MD at 1119 CC: [id number] DICTATION DATE: 04/16/18 1025 WIRE ROLLER: 04/16/18 1046 [facility] [address] [place] [address]
== END | disposition home or self-care (01) ==
LOC: D.ER 08:38 → D.CATH 08:38 → EDSTATUS 10:26
PROVIDERS: Emergency Medicine; ATTEND Internal Medicine Interventional Cardiology
DX: I25.119 Atherosclerotic heart disease of native coronary artery with unspecified angina pectoris (principal); I10 Essential (primary) hypertension; E78.5 Hyperlipidemia, unspecified; I48.2 Chronic atrial fibrillation; Z79.899 Other long term (current) drug therapy; Z95.5 Presence of coronary angioplasty implant and graft

== ENCOUNTER → 2018-05-13 10:11 | Outpatient (CLI) | payer MEDICARE, OTHER ==
[2018-04-16 08:46] VITALS: BMI 30.6
== END | disposition home or self-care (01) ==
LOC: D.RT 10:00
PROVIDERS: ATTEND Family Medicine
DX: J44.9 Chronic obstructive pulmonary disease, unspecified (principal)

== ENCOUNTER 2018-08-27 11:09 | Observation (INO) | payer MEDICARE, OTHER ==
[~2018-08-27] VITALS: Ht 177.8 cm; Wt 91.8 kg
--- NOTE | ~2018-08-27 | HEMODYNAMI ---
PATIENT:JUNIOR MCKEON MEDICAL RECORD: [id number] : 36 [facility] [id number] ADMISSION DATE: 08/27/18 Generatedon:08/28/201810:39 Patient name: JUNIOR MCKEON Patient #: [id number] SSN: [id number] : 1940 Date of study: 08/28/2018 Page: Of Hemodynamic Procedure Report Patient Data Patient Demographics Procedure consent was obtained First Name: JUNIOR Gender: Male Last Name: MIKE : 1940 [facility] Initial: D Age: 78 year(s) Patient #: [id number] Race: SSN: [id number] Additional ID: [id number] Contact details [address]: [address] [place] [address] [place] State: [place] City: [place] Zip code: [address] Past Medical History History of disease Date Diagnosis Comments CAD Peripheral vascular disease Allergies Allergen Reaction Date Comments Reported Other allergy 04/06/2017 hydrocodone Other allergy 05/07/2017 none Other allergy 11/07/2017 Other allergy 04/10/2018 Other allergy 08/28/2018 Hydrocodone Admission Admission Data Admission Date: 08/27/2018 Admission Time: 13:20 Room #: D.2117 Height (in.): 70 BSA: 2.1 (m2) Height (cm.): 177.8 BMI: 29.04 (kg/m2) Weight (lbs.): 202.41 Weight (kg.): 91.81 Lab Results Lab Result Date: 08/28/2018 Lab Result Time: 0:00 Biochemistry Name Units Result Min Max BUN mg/dl 25 --(----)-* 7 18 Creatinine mg/dl 1.3 --(---*)-- 0.6 1.3 CBC Name Units Result Min Max Hemoglobin g/dl 13.8 --(*---)-- 13.5 17.5 Procedure Procedure Types Cath Procedure Diagnostic Procedure C LHC w/Coronaries Sedation Charges Moderate Sedation up to 30 minutes Procedure Description Procedure Date Procedure Date: 08/28/2018 Procedure Start Time: 10:12 Procedure End Time: 10:35 Procedure Staff Name Function Jason Jules MD Performing Physician Diana Marino RT Monitor Fransisco Martin RN Nurse Jackelin Altamirano RT Scrub Procedure Data Cath Procedure Fluoroscopy Diagnostic fluoroscopy Total fluoroscopy Time: 9.5 time: 9.5 min min Diagnostic fluoroscopy Total fluoroscopy dose: dose: 1863 mGy 1863 mGy Contrast Material Contrast Material Type Amount (ml) Isovue 300 76 Entry Location Entry Primary Successful Side Size Upsize Upsize Entry Closure Succes sful Closure Location (Fr) 1 (Fr) 2 (Fr) Remarks Device Remarks Femoral Left 5 Fr 7 Fr 7 Fr Exoseal artery Short Short Estimated blood loss: 10 ml Diagnostic catheters Device Type Used For End Catheter Placement MULTIPACK Pigtail 5 Fr Procedure catheter MULTIPACK JL 4.0 5Fr Procedure catheter MULTIPACK 3DRC 5Fr Procedure catheter Procedure Complications No complications Procedure Medications Medication Administration Route Dosage Oxygen etCO2 Nasal cannula 3 l/min Lidocaine 2% added to field 20 Heparin Flush Bag added to field 2 bags (1000units/500ml NS) 0.9% NaCl I.V. 100 ml/hr Versed I.V. 1 mg Fentanyl I.V. 50 mcg Versed I.V. 1 mg Fentanyl I.V. 50 mcg Heparin Bolus I.V. 4000 units Versed I.V. 1 mg Hemodynamics Rest BSA: 2.1 (m2) HGB: 13.8 (g/dl) O2 Consumption: Estimated: 250.94 (ml/min) O2 Con sumption indexed: Estimated:119.5 (ml/min/m) Heart Rate: 84 (bpm) Snapshots Pre Cath Intra NCS Post Cath Vital Signs Time Heart Resp SPO2 etCO2 NIBP (mmHg) Rhythm Pain Sedation Rate (ipm) (%) (mmHg) Status Level (bpm) 9:42:41 83 11 92 12 153/79(124) NSR 0 (11) 10(A) , No pain 9:46:57 81 12 92 13.5 126/75(102) NSR 0 (11) 10(A) , No pain 9:51:11 75 14 86 21.7 133/68(104) NSR 0 (11) 10(A) , No pain 9:55:27 74 11 99 13.5 120/68(96) NSR 0 (11) 10(A) , No pain 9:59:39 72 12 98 13.7 119/67(96) NSR 0 (11) 10(A) , No pain 10:03:51 70 12 98 0 117/61(91) NSR 0 (11) 10(A) , No pain 10:08:01 69 11 97 0 112/63(88) NSR 0 (11) 9(A) , No pain 10:12:00 69 10 96 16.5 102/68(91) NSR 0 (11) 9(A) , No pain 10:16:00 68 14 97 15.7 104/67(91) NSR 0 (11) 9(A) , No pain 10:20:51 66 10 96 21 115/61(95) NSR 0 (11) 9(A) , No pain 10:24:59 63 10 96 29.2 102/60(90) NSR 0 (11) 9(A) , No pain 10:29:37 71 10 96 46.5 127/65(87) NSR 0 (11) 9(A) , No pain 10:33:51 70 13 96 12 115/61(102) NSR 0 (11) 9(A) , No pain Medications Time Medication Route Dose Verified Delivered Reason Notes Effectiveness by by 9:30:31 Oxygen etCO2 3 Jason Buffie used for Pt we ars Nasal l/min Jorge A Martin RN procedure 3 l nc cannula at all times due to copd per pt report. 9:49:11 Lidocaine 2% added 20ml Jason Gomez for local to vial Jorge A Jules MD anesthetic field 9:49:20 Heparin Flush added 2 Jasonmaribel Gomez used for Bag to bags Jorge A Jules MD procedure (1000units/500ml field NS) 9:49:27 0.9% NaCl I.V. 100 Jasonmaribel Jaramilloie Per physician ml/hr Jorge A Martin RN 10:07:25 Versed I.V. 1 mg Jason Jaramilloie for sedation Jorge A Martin RN 10:07:34 Fentanyl I.V. 50 Jason Ellaie for sedation mcg Jorge A Martin RN 10:15:37 Versed I.V. 1 mg Jason Jaramilloie for sedation Jorge A Martin RN 10:15:41 Fentanyl I.V. 50 Jason Moody for sedation mcg Jorge A Martin RN 10:18:45 Heparin Bolus I.V. 4000 Jason Moody for verif ied units Jorge A Martin RN anticoagulation with dr jules 10:31:56 Versed I.V. 1 mg Jason Moody for sedation Jorge A Martin RN Procedure Log Time Note 9:05:57 Patient Height : 70 inches 9:06:54 Patient Weight : 202.41 lbs 9:08:20 Lab Result : Hemoglobin 13.8 g/dl 9:08:20 Lab Result : Creatinine 1.3 mg/dl 9:08:20 Lab Result : BUN 25 mg/dl 9:08:55 Diagnostic Cath status Elective 9:08:57 Diana Marino RT(R) sent for patient. Start room use. 9:08:59 Time tracking: Regular hours (M-F 7:00 - 5:00) 9:09:04 Plan of Care:Hemodynamics will remain stable., Cardiac rhythm will remain stable., Comfort level will be maintained., Respiratory function will remain adequate., Patient/ family verbilizes understanding of procedure., Procedure tolerated without complication., Recovers from procedure without complications.. 9:09:22 Patient received from Med II to CCL 2 Alert and oriented. Tansferred to table in Supine position. 9:09:36 3a) 45-59 Moderately reduced kidney function. 9:10:38 Sedation plan: IV Moderate Sedation Medication:Versed, Fentanyl 9:30:31 Oxygen 3 l/min etCO2 Nasal cannula was administered by Fransisco Martin RN; used for procedure; Pt wears 3 l nc at all times due to copd per pt report. 9:33:16 Warm blankets applied, and erika hugger turned on for patient comfort. 9:33:16 Correct patient and procedure confirmed by team. 9:33:17 ECG and BP/O2 sat monitors applied to patient. 9:33:18 Signed procedure consent form obtained from patient. 9:41:30 Vital chart was started 9:41:32 Baseline sample Acquired. 9:41:50 Rhythm: sinus rhythm 9:41:52 Full Disclosure recording started 9:41:59 H&P Date Dictated: 08/27/2018 Within 30 days and on chart.. 9:42:01 Pre-procedure instructions explained to patient. 9:42:05 Family in waiting room. 9:42:07 Patient NPO since Midnight. 9:42:23 Patient allergic to Other allergyHydrocodone 9:42:26 Is the patient allergic to Iodine/contrast media? No. 9:42:28 Was the patient premedicated? Yes 9:42:29 Is patient on blood thinner?Yes 9:42:32 ACC The patient was administered the following blood thiners within the last 24 hours: ACCPlavix 9:42:35 Patient diabetic? No. 9:42:39 Snore? Yes 9:42:40 Sleep apnea? Yes 9:42:42 Deviated septum? No 9:42:49 Airway obstruction? Yes COPD 9:42:54 Dentures? Yes tight 9:47:12 Pre procedure: left dorsailis pedis pulse 1+ Palpable, but thready & weak; easily obliterated 9:47:23 Patient pain scale 0/10 pressure. 9:47:32 IV patent on arrival in right forearm with 0.9% NaCl at O. 9:47:38 Lab results completed and on chart. 9:47:42 Left groin area was prepped with chlora-prep and draped in sterile fashion 9:47:43 Alarms reviewed by R. N. 9:47:44 Sharps counted by scrub and verified by R.N. 9:47:50 Use device set Femoral Dx 9:47:52 ACIST Syringe (97487) opened to sterile field. 9:47:52 Bag Decanter (2002) opened to sterile field. 9:47:53 Medline Cath Pack ([id number]) opened to sterile field. 9:47:54 ACIST Hand Control (49124) opened to sterile field. 9:47:54 ACIST Manifold (39070) opened to sterile field. 9:47:55 DIAGNOSTIC Multipack 5Fr catheter set ([id number]) opened to sterile field. 9:47:59 SHEATH 5FR [place] (UGI037) opened to sterile field. 9:48:00 KINJALALD Guide Wire (397-069) opened to sterile field. 9:49:11 Lidocaine 2% 20ml vial added to field was administered by Jason Jules MD; for local anesthetic; 9:49:20 Heparin Flush Bag (1000units/500ml NS) 2 bags added to field was administered by Jason Jules MD; used for procedure; 9:49:27 0.9% NaCl 100 ml/hr I.V. was administered by Fransisco Martin RN; Per physician; 9:52:14 If diabetic: On Metformin? Yes 9:52:19 If on Metformin: Last Dose? 08/27/2018 9:53:41 Zero performed for pressure channel P1 10:01:20 Physician paged 10:05:39 Maximum allowable contrast does (3.7 X eGFR X 0.75)155 ml. 10:06:08 Physician arrived 10:06:09 --------ALL STOP TIME OUT------ 10:06:10 Final Timeout: patient, procedure, and site verified with staff and physician. All members of the team are in agreement. 10:06:16 Left groin site verified by team. 10:06:21 Fire Safety Assessment: A--An alcohol-based skin anteseptic being used preoperatively., C--Open oxygen or nitrous oxide is being used., D--An ESU, laser, or fiber-optic light is being used. 10:06:46 Physical assessment completed. ASA score P 3 - A patient with severe systemic disease as per Jason Jules MD. 10:07:25 Versed 1 mg I.V. was administered by Fransisco Martin RN; for sedation; 10:07:34 Fentanyl 50 mcg I.V. was administered by Fransisco Martin RN; for sedation; 10:12:03 Procedure started. 10:12:15 Local anesthetic to left femerol artery with Lidocaine 2% by Jason Jules MD.INITIAL ACCESS ONLY 10:12:24 A 5 Fr sheath was inserted into the Left Femoral artery 10:12:38 A MULTIPACK Pigtail 5 Fr catheter was advanced over the wire and used for Procedure. 10:13:17 LV angiography performed. 10:13:38 EF : 40 % 10:13:41 Catheter removed. 10:13:50 A MULTIPACK JL 4.0 5Fr catheter was advanced over the wire and used for Procedure. 10:14:04 LCA angiography performed. 10:15:37 Versed 1 mg I.V. was administered by Fransisco Martin RN; for sedation; 10:15:41 Fentanyl 50 mcg I.V. was administered by Fransisco Martin RN; for sedation; 10:16:09 Catheter removed. 10:16:16 A MULTIPACK 3DRC 5Fr catheter was advanced over the wire and used for Procedure. 10:16:25 RCA angiography performed. 10:16:32 Catheter removed. 10:17:55 INFLATOR Merit BasixCompak (VA5660) opened to sterile field. 10:17:55 CHOICE PT Extra Support 182cm wire ([id number]) opened to sterile field. 10:18:01 Proceeding to intervention. 10:18:11 Sheath upsized to a 7 Fr Short. 10:18:45 Heparin Bolus 4000 units I.V. was administered by Fransisco Martin RN; for anticoagulation; verified with dr jules 10:21:06 SHEATH 7FR [place] (PMA908) opened to sterile field. 10:21:07 GUIDE 7FR EBU 3.5 SH catheter ([id number]) opened to sterile field. 10:21:08 GUIDE 7FR EBU 4.0 SH catheter ([id number]) opened to sterile field. 10:21:25 FIELDER XT 190cm guidewire ([id number]) opened to sterile field. 10:21:43 7 Fr EBU3.5sh guide catheter was inserted over the wire 10:21:46 Guide catheter removed. 10:21:53 7 Fr EBU4 guide catheter was inserted over the wire 10:21:59 Fielder wire advanced. 10:24:17 Wire removed. 10:25:39 FIELDER XT J 300cm guide wire ([id number]) opened to sterile field. 10:25:40 SuperCross Microcatheter 90 angle (5304) opened to sterile field. 10:25:50 fielder 300 wire advanced. 10:26:25 SuperCross 90degree advanced across cx 10:28:24 Quick cross removed 10:31:37 The EMERGE OTW 1.5 x 15 balloon ([id number]) was advanced and then removed because of failure to cross lesion 10:31:56 Versed 1 mg I.V. was administered by Fransisco Martin RN; for sedation; 10:32:16 The EUPHORA 1.5 x 12 balloon ([id number]) was advanced and then removed because of failure to cross lesion 10:32:27 Wire removed. 10:32:28 Guide catheter removed. 10:32:37 EXOSEAL 7Fr (EX700) opened to sterile field. 10:33:04 Sheath upsized to a 7 Fr Short. 10:33:04 Sheath removed intact; hemostasis achieved with Exoseal to the Left Femoral artery. 10:33:07 Procedure ended.(Physican Out) 10:33:25 Fluoroscopy time 09.50 minutes. 10:33:29 Flurop Dose total: 1863 10:33:29 Fluoroscopy dose: 1863 mGy 10:33:34 Contrast amount:Isovue 300 76ml. 10:33:38 Insertion/operative site no bleeding no hematoma. 10:33:46 Post-op/insertion site Left Femoral artery dressed using a 4 x 4 and Tegaderm. 10:33:48 Post Procedure Pulses reassessed and unchanged 10:33:55 Post-procedure physical assessment completed. ASA score P 2 - A patient with mild systemic disease as per Jason Jules MD. 10:34:03 Post procedure rhythm: sinus rhythm 10:34:06 Estimated blood loss: 10 ml 10:34:16 Post procedure instruction explained to patient.Patient verbalizes understanding. 10:34:59 Procedure type changed to Cath procedure, Diagnostic procedure, LHC, LHC w/Coronaries, Sedation Charges, Moderate Sedation up to 30 minutes 10:35:02 Procedure and supply charges have been captured, reviewed, submitted and are correct. 10:35:25 Procedure Complication : No complications 10:35:29 Vital chart was stopped 10:35:32 Report given to Pre/Post Procedure Room. 10:35:43 Patient transfered to Pre/Post Procedure Room with Stretcher. 10:35:46 Procedure ended. 10:35:46 Full Disclosure recording stopped 10:35:50 End room use (Document Last) Intervention Summary Intervention Notes Time ActionType Lesion and Equipment Action# Pressure Duration Attributes Used 10:31:37 Discard EMERGE OTW Balloon 1.5 x 15 balloon ([id number]) 10:32:16 Discard EUPHORA 1.5 Balloon x 12 balloon ([id number]) Device Usage Item Name Manufacture Quantity Catalog Number [facility] Lot# / Charge Number Stock Stock Serial# Code ACIST Syringe Acist 1 33691 376645 843147 536156 20 (74630) [employer] Bag Decanter Microtek 1 682512 84040 611640 5 () Medical Inc. Medline Cath Medline 1 [id number] 285401 71350 763177 5 Pack ([id number]) ACIST Hand Acist 1 10997 008235 092170 654414 5 Control Medical (11768) Systems Inc ACIST Acist 1 68185 035972 877646 850733 5 Manifold Medical (37298) Systems Inc DIAGNOSTIC Cardinal 1 BN7414 420585 95117 495645 30 Multipack 5Fr Health catheter set (ZK3486) SHEATH 5FR Terumo 1 VNH702 005091 899680 319803 5 [place] (ROT800) EMERALD Guide Cardinal 1 502-599 631825 841395 877735 5 Net Element Health (502-751) MULTIPACK Cardinal 1 761616 5 Pigtail 5 Fr Health catheter MULTIPACK JL Cardinal 1 957882 5 4.0 5Fr Health catheter MULTIPACK Cardinal 1 475069 5 3DRC 5Fr Health catheter INFLATOR [facility] 1 VG0243 097318 979558 543632 15 Core2 Group Medical BasixCompak (NK0198) CHOICE PT [place] 1 [id number] 087036 708175 149235 5 Extra Support Scientific 182cm wire ([id number]) SHEATH 7FR Terumo 1 LWN465 584957 936817 079035 5 Cupertino (IJY197) GUIDE 7FR EBU Medtronic 1 [id number] 097149 396881 381406 0 3.5 SH catheter ([id number]) GUIDE 7FR EBU Medtronic 1 [id number] 407528 817329 878178 0 4.0 SH catheter ([id number]) FIELDER XT [place] 1 [id number] 877167 17820 453098 5 190cm Vascular guidewire ([id number]) FIELDER XT J [place] 1 [id number] 414800 096000 752657 5 300cm guide Vascular wire ([id number]) SuperCross Vascular 1 5304 803396 000783 405425 5 Microcatheter Solutions 90 angle (3044) EMERGE OTW [place] 1 [id number] 907730 368353 312927 5 [id number] 1.5 x 15 Scientific balloon ([id number]) EUPHORA 1.5 x Medtronic 1 [id number] 336229 345957 418844 5 [id number] 12 balloon ([id number]) EXOSEAL 7Fr Cardinal 1 EX700 947567 008798 007198 5 (EX700) Health Signature Audit [place] Stage Time Signature Unsigned Intra-Procedure 08/28/2018 Diana Marino 10:38:54 AM RT(R) Signatures Monitor : Diana Marino Signature : RT Date : Time : [place] [id number] [place] [address]
[2018-08-27] MEDS ORDERED: ROBAXIN500 MG PO (11:18)
[2018-08-27] MEDS ORDERED: DOXYCYCLINE HY100 M2 PO (11:19)
[2018-08-27] MEDS ORDERED: PROCARDIA10 MG PO (11:22)
[2018-08-27 11:39] LABS: BASOPHILS 0.3 % (0-2); EOSINOPHILS 2.8 % (0-7); HEMATOCRIT 41.5 % (42.0-54.0); HEMOGLOBIN 13.8 g/dL (13.5-17.5); IMMATURE GRANULOCYTES 0.6 % (0-5); LYMPHOCYTES 15.5 % (15-50); MCHC 33.3 g/dL (31.0-37.0); MCV 93.3 fL (80.0-100.0); MEAN PLATELET VOLUME 9.8 fL (7.4-10.4); MONOCYTES 10.7 % (2-11); NEUTROPHILS 70.1 % (40-80); PLATELET COUNT 211 10x3/uL (130-400); RBC 4.45 10x6/uL (4.20-6.10); RDW 14.5 % (11.5-14.5); WBC 10.1 10x3/uL (4.8-10.8)
--- NOTE | 2018-08-27 11:42 | NUR ---
PT CURRENTLY DENIES CP, THEREFORE NO PRN SL NITRO ADMINISTERED AT THIS TIME, ALSO PT REPORTS HE TYPICALLY TAKES 325MG ASA PO DAILY, HOWEVER TODAY WITH SYMPTOMS HE TOOK A TOTAL OF 650MG ASA DEDENTER.
[2018-08-27 11:44] VITALS: BP 113/51
[2018-08-27 11:51] LABS: APTT 25.2 SECONDS (22.8-39.4); PROTIME 12.7 SECONDS (11.6-15.0)
[2018-08-27 11:53] LABS: ALBUMIN 3.2 g/dL (3.4-5.0); ALKALINE PHOSPHATASE 112 U/L (46-116); ALT (SGPT) 24 U/L (10-68); BILIRUBIN - TOTAL 0.54 mg/dL (0.2-1.3); CALC OSMOLALITY 288 mosm/kg (275-300); CALCIUM 8.4 mg/dL (8.5-10.1); CARBON DIOXIDE 29.3 mmol/L (21.0-32.0); CHLORIDE - SERUM 105 mmol/L (98-107); CREATININE - SERUM 1.3 mg/dL (0.6-1.3); GLUCOSE 140 mg/dL (74-106); PROTEIN - SERUM 6.2 g/dL (6.4-8.2); SODIUM 142 mmol/L (136-145); UREA NITROGEN 25 mg/dL (7-18); eGFR NON AFRICAN AMERICAN 56 mL/min (90-120)
[2018-08-27 12:05] LABS: CKMB 2.5 U/L (0.0-3.6); CREATINE KINASE 54 UL (21-232); MAGNESIUM - SERUM 1.5 mg/dL (1.8-2.4)
[2018-08-27 12:06] LABS: TROPONIN-I < 0.017 ng/mL (0.000-0.060)
[2018-08-27 12:21] VITALS: BP 142/73
[2018-08-27 13:01] VITALS: BP 105/51
--- NOTE | 2018-08-27 14:10 | NUR ---
RECEIVED PT TO ROOM 2116 VIA W/C FROM ER AAOX4 RESP UNLABORED SKIN W/D COLOR WNL SALINE LOCK INTACT TO RAC SITE FREE OF REDNESS OR EDEMA TELEMETRY SB 56 NAD NOTED
[2018-08-27 14:13] VITALS: Ht 177.8 cm; Wt 91.8 kg
[2018-08-27] MEDS ORDERED: LOW DOSE ASPIRI81 M1 PO (14:30)
[2018-08-27] MEDS ORDERED: NITROSTAT0.4 MG SL (14:32)
[2018-08-28] VITALS: BP 136/70
[2018-08-28 04:30] VITALS: BP 131/68
[2018-08-28 08:41] VITALS: BP 125/73
--- NOTE | 2018-08-28 09:24 | NUR ---
PRE-OPS GIVEN. TO OBSTETRICS NURSE PRACTITIONER BY BED. WILL CONT. PLAN OF CARE.
--- NOTE | 2018-08-28 10:46 | HP ---
PATIENT: JUNIOR GONZALEZ MEDICAL RECORD: [id number] ACCOUNT: [id number] LOCATION:[facility] : 38 ADMISSION DATE: 08/27/18 PCP: VIDYA PALMA DO HISTORY AND PHYSICAL EXAMINATION DATE OF SERVICE: 08/27/2018 ADMITTING DIAGNOSES: 1. Unstable angina class IV. 2. Coronary artery disease. 3. Multivessel percutaneous transluminal coronary angioplasty stent. 4. Hypertension. 5. Hyperlipidemia. 6. Family history of premature coronary artery disease. 7. Smoking history. 8. Chronic obstructive pulmonary disease. HISTORY OF PRESENT ILLNESS: Mr. Gonzalez has a long history of coronary artery disease with 17 previous stents, who presents with 1 week of increasing anginal symptomatology. He has now progressed to the point of having rest pain. He has taken multiple sublingual nitro today, did not relieve the pain, it was finally relieved with morphine. His chest pain is just like that of his previous pain. PHYSICAL EXAMINATION: GENERAL APPEARANCE: Well-nourished, well-developed, appears stated age. Level of distress, comfortable. PSYCHIATRIC: Mental status, alert, normal affect. Orientation, oriented to time, place and person. EYES: Lids and conjunctiva, noninjected. No discharge, no pallor. ENT: Lips, teeth, gums, normal dentition. Oropharynx, no cyanosis, no pallor. NECK: Carotid arteries, bilateral normal upstroke, no bruits, no thrills. JUGULAR VEINS: No jugular venous pressure or distention. CERVICAL LYMPH NODES: Nontender, nonenlarged. THYROID: Not enlarged. Nontender. No nodules. LUNGS: Respiratory effort, unlabored. CHEST: Normal curvature. No thoracic deformity. No chest wall tenderness. Percussion, resonant. Auscultation, clear. No wheezes, no rales, no rhonchi. CARDIOVASCULAR: Precordial exam, nondisplaced. No heaves or pericardial thrills. Rate and rhythm, regular. Heart sounds, normal S1, normal S2. No S3, no gallop, no rub. Systolic murmur, not heard. Diastolic murmur, not heard. EXTREMITIES: No cyanosis, no edema. Peripheral pulses, full and equal in all extremities, except as noted. No bruits appreciated. ABDOMEN: Soft, nondistended. Normal aorta. No bruit. Nontender. No masses. Liver, nontender, no hepatomegaly. Spleen, nontender, no splenomegaly. MUSCULOSKELETAL: No joint tenderness. No joint swelling. No erythema. NEUROLOGICAL: Normal gait, normal strength, normal tone. SKIN: Warm and dry. OVERALL IMPRESSION: Unstable angina class IV symptomatology. He is on maximal medical therapy with Imdur, ARB, beta-veronica and calcium channel veronica. We will proceed with repeat coronary angiography. Further care depends upon findings of the angiography. TRANSINT:[id number] Voice Confirmation ID: [id number] DOCUMENT ID: [id number] HISTORY AND PHYSICAL [id number] JUNIOR GONZALEZ JEFFREY MD at 1046 CC: [id number] DICTATION DATE: 08/27/18 1247 TREE WRAPPER: 08/27/18 1314 ADM IN [place] [address] [place] [address]
--- NOTE | 2018-08-28 10:49 | NUR ---
PT ARRIVED BY BED. PLACED ON MONITOR. ASSESSMENT COMPLETED. CALL LIGHT WITHIN REACH.
--- NOTE | 2018-08-28 10:55 | NUR ---
FAMILY AT BEDSIDE
--- NOTE | 2018-08-28 11:05 | NUR ---
LEFT GROIN DRESSING C/D/I. NO S/S OF HEMATOMA NOTED. VSS. FAMILY AT BEDSIDE. CALL LIGHT WITHIN REACH.
--- NOTE | 2018-08-28 11:35 | NUR ---
PT RESTING COMFORTABLY. VSS. LEFT GROIN DRESSING C/D/I. NO S/S OF HEMATOMA NOTED. DR. ABRAMS ROUNDED AND SPOKE WITH PT AND PT'S .
--- NOTE | 2018-08-28 12:05 | NUR ---
PT RESTING COMFORTABLY. LEFT GROIN DRESSING C/D/I. NO S/S OF HEMATOMA NOTED. PT HAS CALL LIGHT WITHIN REACH. VSS. TOLERATING SIPS OF WATER. DENIES NAUSEA.
--- NOTE | 2018-08-28 12:34 | NUR ---
PT RESTING COMFORTABLY. VSS. LEFT GROIN DRESSING C/D/I. NO S/S OF HEMATOMA NOTED. FAMILY AT BEDSIDE. SET UP WITH DRINK AND SANDWICH TRAY. DENIES NAUSEA.
--- NOTE | 2018-08-28 13:20 | NUR ---
PT VOIDED APPROX 50CC IN URINAL. VSS. LEFT GROIN DRESSING C/D/I. NO S/S OF HEMATOMA NOTED. CALL LIGHT WITHIN REACH. FAMILY AT BEDSIDE. PT ATE LUNCH. DENIES NAUSEA.
--- NOTE | 2018-08-28 13:45 | NUR ---
PT'S HEAD OF BED INC TO 30 DEGREES. TOLERATED WELL. LEFT GROIN DRESSING C/D/I. NO S/S OF HEMATOMA NOTED. CALL LIGHT WITHIN REACH.
--- NOTE | 2018-08-28 14:24 | NUR ---
RIGHT ARM PIV D/C'D WITH CATH TIP INTACT. PT TOLERATED WELL. VSS. LEFT GROIN DRESSING C/D/I. NO S/S OF HEMATOMA NOTED. PT INSTRUCTED TO GET UP AND DRESSED. FAMILY AT BEDSIDE FOR ASSIST.
--- NOTE | 2018-08-28 14:30 | NUR ---
DISCUSSED DISCHARGE INSTRUCTIONS WITH PT AND PT'S FAMILY. VOICED UNDERSTANDING.
--- NOTE | 2018-08-28 14:45 | NUR ---
LEFT GROIN DRESSING C/D/I. NO S/S OF HEMATOMA NOTED. PT TAKEN OUT TO VEHICLE BY WHEELCHAIR. NO S/S OF DISTRESS NOTED. ALL BELONGINGS AND PAPERWORK IN HAND.
--- NOTE | 2018-09-02 18:38 | DS ---
PATIENT:JUNIOR GONZALEZ :36 MEDICAL RECORD: [id number] DISCHARGE SUMMARY ADMISSION DATE: 08/27/18 DISCHARGE DATE: 08/28/18 DATE OF SERVICE: 08/28/2018 DIAGNOSES: 1. Chronic stable angina. 2. Non-Q-wave myocardial infarction. 3. Coronary artery disease. 4. Hypertension. 5. Hyperlipidemia. 6. Chronic obstructive pulmonary disease. 7. Smoking history. HOSPITAL COURSE: Mr. Gonzalez presents with increasing angina and elevated troponins compatible with a non-Q-wave myocardial infarction. Cardiac catheterization reveals a chronic lesion in the circumflex, it is 95% to 99%. The attempts in the past for PTCA and stent have been unsuccessful as was this time, a wire would cross the lesion; however, no balloon or other interventional equipment was able to cross. This time we had to add Ranexa to his medical regimen. Will follow with [facility] in 2-4 weeks. TRANSINT:[id number] Voice Confirmation ID: [id number] DOCUMENT ID: [id number] WALI ABRAMS MD at 1838 CC: [id number] DICTATION DATE: 08/28/18 1045 CENTER MEDICAL SPECIALIST: 08/28/18 2241 DIS IN 08/28/18 [id number] [place] [address]
--- NOTE | 2018-09-02 18:38 | OP ---
PATIENT NAME: JUNIOR MCKEON MEDICAL RECORD: [id number] :36 LOCATION[facility] ADMISSION DATE:08/27/18 SURGEON: WALI ABRAMS MD DATE OF OPERATION: 08/28/2018 PROCEDURE: 1. Left heart catheterization. 2. Selective coronary angiography. 3. Left ventriculogram. 4. Attempted, but failed PTCA stent of the left circumflex. DESCRIPTION OF PROCEDURE: After informed consent was obtained and after a detailed description of risks, benefits as well as alternative therapies, the patient elected to proceed with angiogram and angioplasty. The left femoral area was prepped and draped in normal sterile fashion. Left femoral artery was cannulated via modified Seldinger technique with placement of a 7-Lebanese sheath. All catheters exchanged through the sheath. FINDINGS: Left ventriculogram was performed in standard 30-degree GRIGGS view, reveals mild global hypokinesis, ejection fraction in the 40% range. SELECTIVE CORONARY ANGIOGRAPHY: 1. Left main is with no significant angiographic disease. 2. Left anterior descending has moderate irregularities, but no flow-limiting stenosis. 3. The left circumflex has a previously placed stent that is widely patent; however, the terminal circumflex comes off in the stented area. This is 95+ % stenosed. We have attempted this lesion multiple times and unsuccessful. 4. Right coronary artery has moderate irregularities, but no flow-limiting stenosis. ATTEMPTED PTCA STENT OF THE LEFT CIRCUMFLEX: We used a 7-Lebanese system. We were able to get a Fielder wire across this lesion; however, no balloon would cross. This has been our experience with this lesion in the past. 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 TRANSINT:[id number] Voice Confirmation ID: [id number] DOCUMENT ID: [id number] WALI ABRAMS MD at 1838 CC: [id number] DICTATION DATE: 08/28/18 1043 DESIGN TECHNOLOGY TEACHER: 08/28/18 1113 DIS IN 08/28/18 [facility] [address] [place] [address]
== END 2018-08-28 14:45 | disposition home or self-care (01) ==
LOC: D.ER 11:09 → OBSVTIME 13:20 → D.M2 13:20 → D.SDCHOLD 14:19 → D.M2 14:22 → D.CLR 08-28 10:46
PROVIDERS: Family Medicine; ADMIT Internal Medicine Interventional Cardiology; ATTEND Internal Medicine Interventional Cardiology
DX: I21.4 Non-ST elevation (NSTEMI) myocardial infarction (principal); I25.119 Atherosclerotic heart disease of native coronary artery with unspecified angina pectoris; I10 Essential (primary) hypertension; E78.5 Hyperlipidemia, unspecified; J44.9 Chronic obstructive pulmonary disease, unspecified

== ENCOUNTER → 2018-10-17 08:49 | Outpatient (CLI) | payer MEDICARE, OTHER ==
[2018-08-27 14:13] VITALS: BMI 29.0
[~2018-10-17 08:49] MED LIST changes: +DOXYCYCLINE HY100 M2 PO; +LOW DOSE ASPIRI81 M1 PO; +NITROSTAT0.4 MG SL; +PROCARDIA10 MG PO; +ROBAXIN500 MG PO
== END | disposition home or self-care (01) ==
LOC: D.RT 08:49
PROVIDERS: ATTEND Internal Medicine Pulmonary Disease
DX: J44.9 Chronic obstructive pulmonary disease, unspecified (principal)